=== PATIENT | male | born 1970 | race Hispanic/Latino ===

== ENCOUNTER 2018-04-22 01:59 | Emergency (ER) | payer SELFPAY ==
[2018-04-22] MEDS ORDERED: GEODON IM ONE (02:58)
[2018-04-22 03:12] LABS: Basophils % (Auto) 0.3 % (0.0-1.8); Eosinophils % (Auto) 0.4 % (0.0-4.3); Hemoglobin 15.5 gm/dl (11.8-15.2); Lymphocytes # (Auto) 1.3 K/mm3 (1.2-5.4); Lymphocytes % (Auto) 9.5 % (13.4-35.0); Mean Corpuscular HGB Conc 34 % (32-34); Mean Corpuscular Hemoglobin 32 pg (28-32); Mean Corpuscular Volume 95 fl (84-94); Monocytes # (Auto) 1.2 K/mm3 (0.0-0.8); Monocytes % (Auto) 8.6 % (0.0-7.3); Platelet Count 316 K/mm3 (140-440); Red Blood Count 4.84 M/mm3 (3.65-5.03); Red Cell Distribution Width 14.4 % (13.2-15.2)
[2018-04-22 03:41] LABS: BUN/Creatinine Ratio 14; Blood Urea Nitrogen 14 mg/dL (9-20); Calcium 9.9 mg/dL (8.4-10.2); Hemolysis Index 139
[2018-04-22] MEDS ORDERED: NACL 0.9% 1000 ML 1,000 ML ONE ×2 (04:33→07:04)
[2018-04-22 08:10] LABS: Creatine Kinase MB 3.1 ng/mL (0.0-4.0)
--- NOTE | 2018-04-22 08:36 | XRay Report ---
FINAL REPORT PROCEDURE: XR CHEST 1V AP TECHNIQUE: Chest radiograph anteroposterior view. CPT 69161 HISTORY: cp COMPARISON: No prior studies are available for comparison. FINDINGS: Heart: Normal. Mediastinum/Vessels: Normal. Lungs/Pleural space: Normal. Bony thorax: No acute osseous abnormality. Life support devices: None. IMPRESSION: No acute cardiopulmonary abnormality.
[2018-04-22 10:26] LABS: Cannabinoid Screen,Urine PRESUMPTIVE NEGATIVE; Cocaine Screen,Urine PRESUMPTIVE NEGATIVE; Methadone Screen,Urine PRESUMPTIVE NEGATIVE; Opiate Screen,Urine PRESUMPTIVE NEGATIVE
[2018-04-22 10:48] LABS: Amphetamine Screen,Urine PRESUMPTIVE POSITIVE; Benzodiazepines Screen,Urine PRESUMPTIVE POSITIVE
[2018-04-22] MEDS ORDERED: ZESTRIL PO ONE (15:28)
[2018-04-22] MEDS ORDERED: VISTARIL PO ONE (15:28)
[2018-04-22] MEDS ORDERED: TYLENOL PO ONE (15:30)
[2018-04-23] MEDS ORDERED: ATIVAN PO ONE ×2 (02:50→12:58)
[2018-04-23] MEDS ORDERED: ATIVAN ONE (02:54)
[2018-04-23] MEDS ORDERED: ZESTRIL PO ONE (12:59)
[2018-04-23] MEDS ORDERED: ATARAX PO ONE (13:30)
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
[2018-04-23] MEDS ORDERED: RisperDAL PO SCH (22:00)
[2018-04-23] MEDS: RisperDAL PO SCH (22:33)
--- NOTE | 2018-04-24 11:07 | Progress Note ---
Subjective - Reason for Consult Consult date: 04/24/18 Reason for consult: Psychiatry Follow-up - Chief Complaint Chief complaint: "I was chcf" 47 year old male who presents to the emergency room with paranoid thoughts. Today the patient is cooperative, but tangent and disorganized during the assessment. He had to be redirected several times to stay on topic. He rambles about multiple things when he is asked a question. His answers to questions are not logical. He would not confirm or deny a mental health hx. This patient is not a good historian at this time. Mental Status Exam - Vital signs Last Vital Signs Temp 99.4 F 04/23/18 21:10 Pulse 91 H 04/23/18 21:10 Resp 16 04/23/18 21:10 BP 152/104 04/23/18 21:10 Pulse Ox 100 04/23/18 21:10 - Exam Narrative exam: MSE: Appearance: cooperative Behavior: regular eye contact Speech: hyper verbal Mood: "anxious" Affect: congruent to mood Thought Process: disorganized, tangential Thought Content: denies SI/HI's and AVH's, paranois Motor Activity: lying in bed Cognition: A/O x 3 Insight: poor Judgment: poor Assessment and Plan Impression: Unspecified Psychosis. Substance Use DO (amphetamines). Today the patient is still disorganized during the assessment. DDx: R/O Drug Induced Psychosis, R/O Schizophrenia Recommendation/Plan: Continue 1013 and reassess patient in 24 hour to determine proper dispo once medically clear. Continue Risperdal 1 mg PO HS psychosis/mood and start Buspar 7.5 mg PO BID for anxiety. Attempted to discuss possible metabolic side effects of Risperdal with patient.
[2018-04-24] MEDS: BUSPAR PO SCH ×2 (12:02→22:07)
--- NOTE | 2018-04-24 12:51 | Emergency Department Report ---
Blank Doc - Documentation Documentation: I spoke with my colleague Dr. Aquino who evaluated patient. Her comprehensive history and physical is in paper form on patient's chart. I have reviewed progress notes and diagnostics performed in the ED. Patient is medically clear for psychiatric care. No medical condition exists which needs further stabilization.
[2018-04-24] MEDS ORDERED: ZESTRIL PO ONE (17:02)
[2018-04-24] MEDS ORDERED: ATIVAN PO ONE (17:02)
[2018-04-24] MEDS: RisperDAL PO SCH (22:07)
[2018-04-25] MEDS: BUSPAR PO SCH ×2 (10:17→22:17)
--- NOTE | 2018-04-25 12:49 | Progress Note ---
Subjective - Reason for Consult Consult date: 04/25/18 Reason for consult: Psychiatry Follow-up - Chief Complaint Chief complaint: "I feel a little better" 47 year old male who presents to the emergency room with paranoid thoughts. Today the patient is calm and cooperative during the assessment. He stated that he felt better after taking Buspar. The patient is more lucid, but looks around and pauses when asked questions during the interview, possibly responding to some type of stimuli. He denies SI/HI's and AVH's. He denies any side effects of his medications. Mental Status Exam - Vital signs Last Vital Signs Temp 97.6 F 04/24/18 21:10 Pulse 90 04/24/18 21:10 Resp 17 04/24/18 21:10 BP 148/110 04/24/18 21:10 Pulse Ox 99 04/24/18 21:10 - Exam Narrative exam: MSE: Appearance: calm, cooperative Behavior: regular eye contact Speech: regular rate and tone Mood: "okay" Affect: congruent to mood Thought Process: circumstantial Thought Content: denies SI/HI's and AVH's, paranoia Motor Activity: lying in bed Cognition: A/O x 3 Insight: variable Judgment: variable Assessment and Plan Impression: Unspecified Psychosis. Substance Use DO (amphetamines). Today the patient is still disorganized during the assessment. DDx: R/O Drug Induced Psychosis, R/O Schizophrenia Recommendation/Plan: Continue 1013 and reassess patient in 24 hour to determine proper dispo. Continue Risperdal 1 mg PO HS psychosis/mood and Buspar 7.5 mg PO BID for anxiety. Attempted to discuss possible metabolic side effects of Risperdal with patient.
[2018-04-25] MEDS ORDERED: ATIVAN PO ONE (16:02)
[2018-04-25] MEDS ORDERED: ALUM-MAG HYDROX-SIMETH 200-200-20MG/5ML PO ONE (16:03)
[2018-04-25] MEDS: RisperDAL PO SCH (22:17)
[2018-04-25] MEDS ORDERED: MILK OF MAGNESIA PO ONE (22:52)
--- NOTE | 2018-04-26 09:09 | Emergency Department Report ---
ED Psych HPI - General Chief Complaint: Chest Pain Stated Complaint: CHEST PAIN Time Seen by Provider: 04/22/18 03:51 Source: patient, EMS Mode of arrival: Ambulatory Limitations: Other (anxious) - History of Present Illness Initial Comments: 47-year-old male with a past medical history of hypertension with medication noncompliance, anxiety, substance abuse presents to the hospital complaints of chest pain. Patient anxious and paranoid. He complains of pain across his chest. He is constantly talking about strangers at his mother's house and how he is uncomfortable with them there. He admits to smoking marijuana and states to his knowledge it did not contain any other substances. He does not admit to meth and cocaine abuse. He is initially not cooperative and refusing EKG or to be helped up to the monitor. Is obviously paranoid and presents with significantly elevated blood pressure and heart rate. 1013 has been signed since I believe patient is intoxicated, paranoid, and not safe for discharge. - Related Data Home Medications Medication Instructions Recorded Confirmed Last Taken Lisinopril [Zestril] 10 mg PO DAILY 04/22/18 04/22/18 Unknown Allergies Allergy/AdvReac Type Severity Reaction Status Date / Time amoxicillin Allergy Anaphylaxis Verified 07/24/15 22:05 Penicillins Allergy Anaphylaxis Verified 07/24/15 22:05 ED Review of Systems ROS: Stated complaint: CHEST PAIN Other details as noted in HPI Comment: All other systems reviewed and negative ED Past Medical Hx - Past Medical History Previous Medical History?: Yes Hx Hypertension: Yes (Does Not Take Meds) Hx Psychiatric Treatment: Yes (anxiety, substance abuse) Additional medical history: L shoulder "impeachment" - Surgical History Hx Appendectomy: Yes Additional Surgical History: LEFT LEG SURGERY - Social History Smoking Status: Current Every Day Smoker Substance Use Type: Marijuana - Medications Home Medications: Home Medications Medication Instructions Recorded Confirmed Last Taken Type Lisinopril [Zestril] 10 mg PO DAILY 04/22/18 04/22/18 Unknown History ED Physical Exam - General Limitations: Other - Other Other exam information: General: Anxious uncooperative Head exam: Atraumatic, normocephalic Eyes exam: Normal appearance ENT: Moist mucous membrane, normal oropharynx Neck exam: Normal inspection, full range of motion, no meningismus nontender Respiratory exam: Clear to auscultation bilateral, no wheezes, rales, crackles Cardiovascular: Tachycardic regular rhythm Abdomen: Soft, nondistended, and nontender, with normal bowel sounds, no rebound, or guarding Extremity: Full range of motion normal inspection no deformity Back: Normal Inspection, full range of motion, no tenderness Neurologic: Alert, oriented x3, cranial nerves intact, no motor or sensory deficit Psychiatric: Anxious paranoid Skin: Warm, dry, intact ED Course Vital Signs 04/22/18 04/22/18 04/22/18 02:30 07:00 07:16 Temperature 98.2 F Pulse Rate 120 H 62 Respiratory 18 14 14 Rate Blood Pressure 164/111 81/43 97/55 Blood Pressure 164/111 [Left] O2 Sat by Pulse 97 96 99 Oximetry 04/22/18 04/22/18 04/22/18 08:00 09:00 09:20 Temperature Pulse Rate 55 L 49 L 58 L Respiratory 11 L 11 L 13 Rate Blood Pressure 95/55 84/53 103/69 Blood Pressure [Left] O2 Sat by Pulse 100 98 99 Oximetry 04/22/18 04/22/18 04/22/18 10:00 10:49 19:40 Temperature 98.5 F Pulse Rate 52 L 64 74 Respiratory 9 L 20 16 Rate Blood Pressure 103/66 Blood Pressure 129/97 114/75 [Left] O2 Sat by Pulse 99 100 99 Oximetry 04/23/18 04/23/18 04/23/18 10:39 11:02 13:08 Temperature 97.6 F Pulse Rate 71 71 Respiratory 16 16 Rate Blood Pressure 120/74 Blood Pressure 120/74 [Left] O2 Sat by Pulse 99 99 Oximetry 04/23/18 04/24/18 04/24/18 21:10 02:38 10:00 Temperature 99.4 F 97.6 F Pulse Rate 91 H 94 H Respiratory 16 20 18 Rate Blood Pressure Blood Pressure 152/104 124/85 [Left] O2 Sat by Pulse 100 95 98 Oximetry 04/24/18 04/24/18 04/24/18 12:46 17:20 21:10 Temperature 97.6 F Pulse Rate 70 90 Respiratory 16 17 Rate Blood Pressure 118/86 Blood Pressure 148/110 [Left] O2 Sat by Pulse 98 99 Oximetry 04/25/18 04/25/18 04/25/18 04:00 10:00 19:30 Temperature 98.1 F 98.3 F Pulse Rate 70 71 Respiratory 18 18 18 Rate Blood Pressure Blood Pressure 127/81 118/89 [Left] O2 Sat by Pulse 98 95 99 Oximetry 04/25/18 21:02 Temperature Pulse Rate Respiratory 18 Rate Blood Pressure Blood Pressure [Left] O2 Sat by Pulse 96 Oximetry - Reevaluation(s) Reevaluation #1: pt was agreeable to receiving a medication to calm him down and received IM Geodon. After that we are able to place him in a bed and obtain an EKG which showed improvement in heart rate. Blood pressure also reduce with a systolic less than 100 therefore normal saline IV bolus initiated. ED Medical Decision Making - Lab Data Result diagrams: 04/22/18 02:49 04/26/18 09:19 Lab Results 04/22/18 04/22/18 04/22/18 Range/Units 02:49 02:49 02:59 WBC 13.7 H (4.5-11.0) K/mm3 RBC 4.84 (3.65-5.03) M/mm3 Hgb 15.5 H (11.8-15.2) gm/dl Hct 46.0 H (35.5-45.6) % MCV 95 H (84-94) fl MCH 32 (28-32) pg MCHC 34 (32-34) % RDW 14.4 (13.2-15.2) % Plt Count 316 (140-440) K/mm3 Lymph % (Auto) 9.5 L (13.4-35.0) % Adams % (Auto) 8.6 H (0.0-7.3) % Eos % (Auto) 0.4 (0.0-4.3) % Baso % (Auto) 0.3 (0.0-1.8) % Lymph # 1.3 (1.2-5.4) K/mm3 Adams # 1.2 H (0.0-0.8) K/mm3 Eos # 0.0 (0.0-0.4) K/mm3 Baso # 0.0 (0.0-0.1) K/mm3 Seg Neutrophils % 81.2 H (40.0-70.0) % Seg Neutrophils # 11.1 H (1.8-7.7) K/mm3 Sodium 133 L (137-145) mmol/L Potassium 4.7 (3.6-5.0) mmol/L Chloride 96.7 L (98-107) mmol/L Carbon Dioxide 17 L (22-30) mmol/L Anion Gap 24 mmol/L BUN 14 (9-20) mg/dL Creatinine 1.0 (0.8-1.5) mg/dL Estimated GFR > 60 ml/min BUN/Creatinine Ratio 14 % Glucose 138 H (75-100) mg/dL Calcium 9.9 (8.4-10.2) mg/dL Total Creatine Kinase 120 (55-170) units/L CK-MB (CK-2) 3.1 (0.0-4.0) ng/mL CK-MB (CK-2) Rel Index 2.5 (0-4) Troponin T < 0.010 (0.00-0.029) ng/mL Urine Opiates Screen Urine Methadone Screen Ur Barbiturates Screen Ur Phencyclidine Scrn Ur Amphetamines Screen U Benzodiazepines Scrn Urine Cocaine Screen U Marijuana (THC) Screen Drugs of Abuse Note Plasma/Serum Alcohol (0-0.07) % 04/22/18 04/22/18 Range/Units 02:59 09:45 WBC (4.5-11.0) K/mm3 RBC (3.65-5.03) M/mm3 Hgb (11.8-15.2) gm/dl Hct (35.5-45.6) % MCV (84-94) fl MCH (28-32) pg MCHC (32-34) % RDW (13.2-15.2) % Plt Count (140-440) K/mm3 Lymph % (Auto) (13.4-35.0) % Adams % (Auto) (0.0-7.3) % Eos % (Auto) (0.0-4.3) % Baso % (Auto) (0.0-1.8) % Lymph # (1.2-5.4) K/mm3 Adams # (0.0-0.8) K/mm3 Eos # (0.0-0.4) K/mm3 Baso # (0.0-0.1) K/mm3 Seg Neutrophils % (40.0-70.0) % Seg Neutrophils # (1.8-7.7) K/mm3 Sodium (137-145) mmol/L Potassium (3.6-5.0) mmol/L Chloride (98-107) mmol/L Carbon Dioxide (22-30) mmol/L Anion Gap mmol/L BUN (9-20) mg/dL Creatinine (0.8-1.5) mg/dL Estimated GFR ml/min BUN/Creatinine Ratio % Glucose (75-100) mg/dL Calcium (8.4-10.2) mg/dL Total Creatine Kinase (55-170) units/L CK-MB (CK-2) (0.0-4.0) ng/mL CK-MB (CK-2) Rel Index (0-4) Troponin T (0.00-0.029) ng/mL Urine Opiates Screen Presumptive negative Urine Methadone Screen Presumptive negative Ur Barbiturates Screen Presumptive negative Ur Phencyclidine Scrn Presumptive negative Ur Amphetamines Screen Presumptive positive U Benzodiazepines Scrn Presumptive positive Urine Cocaine Screen Presumptive negative U Marijuana (THC) Screen Presumptive negative Drugs of Abuse Note Disclamer Plasma/Serum Alcohol < 0.01 (0-0.07) % repeat BMP shows improvement in minor electrolyte abnormalities - EKG Data -: EKG Interpreted by [facility] EKG shows normal: sinus rhythm (87), axis (qrs 10), QRS complexes (qrsd 95), ST- T waves (no stemi/t inv) - EKG Data When compared to previous EKG there are: previous EKG unavailable - Medical Decision Making paranoia Primary psychiatric disorders versus acute drug intoxication 1013 has been signed the patient can be stabilized and reassessed Hypertension/chest pain Associated with paranoia Improved after Geodon with secondary hypotension Normal saline initiated low BP EKG without stemi Inital trop neg pt will be signed out to Dr Medina, oncoming physician to follow up pending lab values reassessed patient. Critical Care Time: No Critical care attestation.: If time is entered above; I have spent that time in minutes in the direct care of this critically ill patient, excluding procedure time. ED Disposition Clinical Impression: Psychosis, Paranoid, Amphetamine abuse, Medical clearance for psychiatric admission, Benzodiazepine abuse Hypertension Qualifiers: Hypertension type: essential hypertension Qualified Code(s): I10 - Essential ( primary) hypertension Disposition: DC/TX-65 PSY HOSP/PSY UNIT Is pt being admited?: No Does the pt Need Aspirin: No Condition: Stable Referrals: PRIMARY CARE, [Primary Care Provider] - 3-5 Days Time of Disposition: 09:11
[2018-04-26 09:52] LABS: BUN/Creatinine Ratio 11; Blood Urea Nitrogen 10 mg/dL (9-20); Calcium 9.1 mg/dL (8.4-10.2); Hemolysis Index 13
[2018-04-26] MEDS: BUSPAR PO SCH ×2 (10:16→22:05)
[2018-04-26] MEDS ORDERED: TYLENOL ONE (11:17)
[2018-04-26 20:56] VITALS: BP 124/91
[2018-04-26] MEDS: RisperDAL PO SCH (22:05)
[2018-04-27] MEDS ORDERED: TYLENOL PO ONE (00:20)
[2018-04-27] MEDS ORDERED: ATIVAN PO PRN (10:16)
[2018-04-27] MEDS: BUSPAR PO SCH (10:27)
[2018-04-27] MEDS ORDERED: PEPCID PO SCH (12:00)
[2018-04-27] MEDS ORDERED: PEPCID ONE (12:06)
--- NOTE | 2018-04-27 13:04 | Progress Note ---
Subjective - Reason for Consult Consult date: 04/27/18 Reason for consult: Psychiatry Follow-up - Chief Complaint Chief complaint: "I will do better" 47 year old male who presents to the emergency room with paranoid thoughts. Today the patient is calm and cooperative during the assessment. He stated that he will follow up with outpatient/rehab services once discharged. He stated that his mental health is very important. He denies SI/HI's and AVH' s. He denies any side effects of his medications. Mental Status Exam - Vital signs Last Vital Signs Temp 97.9 F 04/26/18 19:25 Pulse 77 04/26/18 19:25 Resp 14 04/27/18 01:39 BP 124/91 04/26/18 19:25 Pulse Ox 99 04/26/18 19:25 - Exam Narrative exam: MSE: Appearance: calm, cooperative Behavior: regular eye contact Speech: regular rate and tone Mood: "okay" Affect: congruent to mood Thought Process: more organized Thought Content: denies SI/HI's and AVH's Motor Activity: lying in bed Cognition: A/O x 3 Insight: fair Judgment: fair Assessment and Plan Impression: Unspecified Psychosis. Substance Use DO (amphetamines). Today the patient is calm and cooperative during the assessment. The psychosis has resolved. DDx: R/O Drug Induced Psychosis, R/O Schizophrenia Recommendation/Plan: Rescind 1013. Continue Risperdal 1 mg PO HS psychosis/mood and Buspar 7.5 mg PO BID for anxiety. Discussed possible metabolic side effects of Risperdal with patient. The patient can follow up with [facility] for outpatient psy/rehab services.
== END 2018-04-27 14:14 | disposition home or self-care (01) ==
LOC: EEVIPCON 01:59 → ED 01:59
DX: F41.9 Anxiety disorder, unspecified (principal); F29 Unspecified psychosis not due to a substance or known physiological condition; F15.10 Other stimulant abuse, uncomplicated; I10 Essential (primary) hypertension; F12.10 Cannabis abuse, uncomplicated; F17.200 Nicotine dependence, unspecified, uncomplicated; Z90.89 Acquired absence of other organs; Z88.1 Allergy status to other antibiotic agents; Z88.0 Allergy status to penicillin; Z79.899 Other long term (current) drug therapy
CPT/HCPCS: 36415; 71045; 80048; 80307; 82550; 82553; 84484; 85025; 93005; 93010; 96372; 99285; G0480; J3486; J7030; 80320; Q0177

== ENCOUNTER 2018-09-03 00:28 | Emergency (ER) | payer SELFPAY ==
--- NOTE | 2018-09-03 01:51 | Emergency Department Report ---
ED General Adult HPI - General Chief complaint: Psych Stated complaint: MED REFILL Time Seen by Provider: 09/03/18 01:44 Source: patient, RN notes reviewed, old records reviewed Mode of arrival: Ambulatory Limitations: Other (patient is upset is a poor historian) - History of Present Illness Initial comments: This is a 48-year-old gentleman with a history of hypertension, presumed GERD, alcohol abuse, methamphetamine abuse, psychiatric disease who presents to the ER with a request for medical clearance. He reports that he would like to perform voluntary hospitalization. He has chronic hallucinations. He is not homicidal or suicidal. He requests refill of his medications. He does not have access to guns or firearms. He does not want to hurt himself. His somewhat to hurt other people. He reports that he consumed alcohol earlier on today. He also requests refill of his psychiatric medications. -: Gradual Consistency: constant Improves with: none Worsens with: none Associated Symptoms: loss of appetite, malaise, weakness. denies: confusion, chest pain, cough, diaphoresis, fever/chills, headaches, nausea/vomiting, rash, seizure, shortness of breath, syncope - Related Data Home Medications Medication Instructions Recorded Confirmed Last Taken Hydroxyzine HCl [hydrOXYzine] 50 mg PO TID 08/14/18 08/29/18 Unknown Ibuprofen [Ibu] 800 mg PO TID PRN 08/14/18 08/29/18 Unknown Previous Rx's Medication Instructions Recorded Last Taken Type Lisinopril [Zestril] 10 mg PO DAILY #30 tablet 08/25/18 Unknown Rx QUEtiapine [SEROquel] 200 mg PO HS #30 tablet 08/25/18 Unknown Rx Esomeprazole Magnesium [NexIUM] 40 mg PO QDAY #30 capsule. 08/29/18 Unknown Rx QUEtiapine [SEROquel] 200 mg PO HS #30 tablet 08/29/18 Unknown Rx Sertraline [Zoloft] 25 mg PO QDAY #30 tablet 08/29/18 Unknown Rx hydrOXYzine PAMOATE [Vistaril] 25 mg PO TID #30 capsule 08/29/18 Unknown Rx Allergies Allergy/AdvReac Type Severity Reaction Status Date / Time amoxicillin Allergy Anaphylaxis Verified 07/24/15 22:05 Penicillins Allergy Anaphylaxis Verified 07/24/15 22:05 ED Review of Systems ROS: Stated complaint: MED REFILL Other details as noted in HPI Constitutional: malaise. denies: fever Eyes: denies: eye discharge ENT: denies: epistaxis Respiratory: denies: cough Cardiovascular: denies: chest pain Genitourinary: denies: dysuria, testicular mass Musculoskeletal: arthralgia, myalgia Neurological: weakness. denies: as per HPI Psychiatric: anxiety. denies: homicidal thoughts, suicidal thoughts ED Past Medical Hx - Past Medical History Previous Medical History?: Yes Hx Hypertension: Yes Hx Psychiatric Treatment: Yes (anxiety, substance abuse, Parinoid schizo) Additional medical history: L shoulder - Surgical History Hx Appendectomy: Yes Additional Surgical History: LEFT LEG SURGERY - Social History Smoking Status: Current Every Day Smoker Substance Use Type: Alcohol - Medications Home Medications: Home Medications Medication Instructions Recorded Confirmed Last Taken Type Hydroxyzine HCl [hydrOXYzine] 50 mg PO TID 08/14/18 08/29/18 Unknown History Ibuprofen [Ibu] 800 mg PO TID PRN 08/14/18 08/29/18 Unknown History Lisinopril [Zestril] 10 mg PO DAILY #30 tablet 08/25/18 08/29/18 Unknown Rx QUEtiapine [SEROquel] 200 mg PO HS #30 tablet 08/25/18 08/29/18 Unknown Rx Esomeprazole Magnesium [NexIUM] 40 mg PO QDAY #30 capsule. 08/29/18 08/29/18 Unknown Rx QUEtiapine [SEROquel] 200 mg PO HS #30 tablet 08/29/18 08/29/18 Unknown Rx Sertraline [Zoloft] 25 mg PO QDAY #30 tablet 08/29/18 08/29/18 Unknown Rx hydrOXYzine PAMOATE [Vistaril] 25 mg PO TID #30 capsule 08/29/18 08/29/18 Unknown Rx ED Physical Exam - General Limitations: No Limitations General appearance: alert, anxious, in distress - Head Head exam: Present: atraumatic, normocephalic - Eye Eye exam: Present: normal appearance, EOMI. Absent: nystagmus - ENT ENT exam: Present: normal exam, normal orophraynx, mucous membranes moist, normal external ear exam - Neck Neck exam: Present: normal inspection, full ROM. Absent: tenderness, meningismus - Respiratory Respiratory exam: Present: normal lung sounds bilaterally. Absent: respiratory distress - Cardiovascular Cardiovascular Exam: Present: normal rhythm, tachycardia, normal heart sounds. Absent: systolic murmur, diastolic murmur, rubs, gallop - GI/Abdominal GI/Abdominal exam: Present: soft. Absent: distended, tenderness, guarding, rebound, rigid, pulsatile mass - Rectal Rectal exam: Present: deferred - Extremities Exam Extremities exam: Present: normal inspection, full ROM, other (2+ pulses in the bilateral upper extremities. Moving 4 extremities spontaneously. There is no long bony tenderness.) - Back Exam Back exam: Present: normal inspection, full ROM. Absent: tenderness, CVA tenderness (R), paraspinal tenderness, vertebral tenderness - Neurological Exam Neurological exam: Present: alert, oriented X3, CN II-XII intact, normal gait, other (Extraocular movements intact. Tongue midline. No facial droop. Facial sensation intact to light touch in the V1, V2, V3 distribution bilaterally. 5 and 5 strength in 4 extremities.. Sensation is intact to light touch in 4 extremities.). Absent: motor sensory deficit - Psychiatric Psychiatric exam: Present: anxious. Absent: homicidal ideation, suicidal ideation - Skin Skin exam: Present: warm, dry, intact, normal color. Absent: rash ED Course Vital Signs 09/03/18 09/03/18 09/03/18 01:29 02:00 03:10 Temperature 98.2 F Pulse Rate 110 H 93 H Respiratory 20 14 14 Rate Blood Pressure 110/73 Blood Pressure 121/84 [Left] O2 Sat by Pulse 98 96 96 Oximetry 09/03/18 04:06 Temperature Pulse Rate 87 Respiratory 16 Rate Blood Pressure Blood Pressure 123/81 [Left] O2 Sat by Pulse 97 Oximetry - Reevaluation(s) Reevaluation #1: 09/03/18 02:16 Differential diagnosis, including but not limited to: Anxiety, mood disorder, medical clearance for psychiatric placement, chronic alcohol dependence Assessment and plan: 48-year-old gentleman who appears to be anxious, is not homicidal or suicidal, clinically does not appear to be intoxicated at this poin t in time. Does not meet 1013 criteria. Is requesting symptomatic therapy at this time. No tongue fasciculations noted. Tachycardia likely secondary to anxiety. We will obtain screening laboratory studies. He will be given Ativan for his symptoms. Psychiatric consultation has been requested for voluntary placement, as per the patient's request. Physical examination thus far unremarkable, with the exception of tachycardia. Reevaluation #2: 09/03/18 04:20 Laboratory studies reviewed and appreciated. They are essentially unremarkable. Creatinine kinase of 700 appreciated, muscular compartments soft, renal function within normal limits, this does not meet the definition criteria for rhabdomyolysis, and this will decrease with oral hydration. He does not require IV fluids at this time, or additional follow-up at this point in time. The patient's outpatient medications have been continued, psychiatry consultation has been requested, and the patient is pending placement to a psychiatric facility on a voluntary basis. At this point in time, there does not appear to be in immediate medical contraindication to psychiatric admission, evaluation, placement. However, if the patient elects that he would like to be discharged from the emergency room and follow-up as an outpatient, this plan of care would be reasonable as well. ED Medical Decision Making - Lab Data Result diagrams: 09/03/18 01:55 09/03/18 01:55 Vital Signs 09/03/18 01:29 Temperature 98.2 F Pulse Rate 110 H Respiratory 20 Rate Blood Pressure 110/73 O2 Sat by Pulse 98 Oximetry Vital Signs 09/03/18 09/03/18 09/03/18 01:29 02:00 03:10 Temperature 98.2 F Pulse Rate 110 H 93 H Respiratory 20 14 14 Rate Blood Pressure 110/73 Blood Pressure 121/84 [Left] O2 Sat by Pulse 98 96 96 Oximetry 09/03/18 04:06 Temperature Pulse Rate 87 Respiratory 16 Rate Blood Pressure Blood Pressure 123/81 [Left] O2 Sat by Pulse 97 Oximetry Critical care attestation.: If time is entered above; I have spent that time in minutes in the direct care of this critically ill patient, excluding procedure time. ED Disposition Clinical Impression: Schizophrenia, History of alcohol dependence Disposition: [id number]/PSY UNIT Is pt being admited?: No Does the pt Need Aspirin: No Condition: Good Referrals: PRIMARY CARE, [Primary Care Provider] - 3-5 Days
[2018-09-03] MEDS: ATIVAN IM PRN ×2 (02:05→13:08)
[2018-09-03 02:22] LABS: Basophils # (Auto) 0.1 K/mm3 (0.0-0.1); Basophils % (Auto) 0.7 % (0.0-1.8); Eosinophils # (Auto) 0.2 K/mm3 (0.0-0.4); Hematocrit 39.9 % (35.5-45.6); Hemoglobin 13.7 gm/dl (11.8-15.2); Lymphocytes # (Auto) 2.3 K/mm3 (1.2-5.4); Lymphocytes % (Auto) 27.3 % (13.4-35.0); Mean Corpuscular HGB Conc 34 % (32-34); Mean Corpuscular Volume 96 fl (84-94); Monocytes # (Auto) 0.5 K/mm3 (0.0-0.8); Monocytes % (Auto) 6.6 % (0.0-7.3); Platelet Count 298 K/mm3 (140-440); Red Blood Count 4.14 M/mm3 (3.65-5.03); Red Cell Distribution Width 14.2 % (13.2-15.2)
[2018-09-03 02:32] LABS: BUN/Creatinine Ratio 11; Blood Urea Nitrogen 10 mg/dL (9-20); Calcium 8.6 mg/dL (8.4-10.2); Hemolysis Index 38
[2018-09-03] MEDS ORDERED: IBUPROFEN PO PRN (04:21)
[2018-09-03] MEDS ORDERED: LIBRIUM PO PRN (04:22)
[2018-09-03] MEDS ORDERED: ATIVAN IV PRN ×2 (04:22)
[2018-09-03] MEDS: ATIVAN IV PRN ×2 (06:30→07:39)
[2018-09-03 06:50] LABS: Benzodiazepines Screen,Urine PRESUMPTIVE NEGATIVE; Cocaine Screen,Urine PRESUMPTIVE NEGATIVE; Opiate Screen,Urine PRESUMPTIVE NEGATIVE
[2018-09-03 07:04] LABS: Amphetamine Screen,Urine PRESUMPTIVE POSITIVE; Cannabinoid Screen,Urine PRESUMPTIVE POSITIVE; Methadone Screen,Urine PRESUMPTIVE POSITIVE
[2018-09-03] MEDS: ATARAX PO SCH ×2 (07:38→13:10)
[2018-09-03] MEDS ORDERED: NON-FORMULARY (Hydroxyzine Hcl [Hydroxyzine] 50 MG) PO SCH (08:00)
[2018-09-03] MEDS ORDERED: PROTONIX PO SCH (10:00)
[2018-09-03] MEDS ORDERED: ZESTRIL PO SCH (10:00)
[2018-09-03] MEDS ORDERED: NON-FORMULARY (Esomeprazole Magnesium [Nexium] 40 MG) PO SCH (10:00)
[2018-09-03 13:09] VITALS: BP 134/72
== END 2018-09-03 13:50 | disposition left against medical advice (07) ==
LOC: EEVIPCON 00:28 → ED 00:28
DX: F20.0 Paranoid schizophrenia (principal); F41.9 Anxiety disorder, unspecified; I10 Essential (primary) hypertension; K21.9 Gastro-esophageal reflux disease without esophagitis; F17.200 Nicotine dependence, unspecified, uncomplicated; Z90.49 Acquired absence of other specified parts of digestive tract; Z88.0 Allergy status to penicillin; Z88.1 Allergy status to other antibiotic agents
CPT/HCPCS: 36415; 80048; 80307; 82550; 85025; 96372; 96374; 96376; 99284; G0480; J2060; 80320

== ENCOUNTER 2018-09-03 15:53 | Emergency (ER) | payer SELFPAY ==
--- NOTE | 2018-09-03 17:34 | Emergency Department Report ---
ED Psych HPI - General Chief Complaint: Psych Stated Complaint: MH Time Seen by Provider: 09/03/18 17:17 Source: patient Mode of arrival: Ambulatory - History of Present Illness Initial Comments: Patient is 48-year-old male with history of post traumatic stress disorder, paranoid schizophrenia, methamphetamine abuse and alcohol abuse. Patient brought to the ER accompanied by his mother. Patient stated that he is hearing voices more frequent for the last few days. He stated that the voices are bothering him. Patient stated that he is unable to function because of that. Patient also admitting visual hallucination. Patient denied any suicidal or homicidal ideation. Mother stated that patient has been very paranoid and has been calling 911 more frequent. Complaint: other - Related Data Home Medications Medication Instructions Recorded Confirmed Last Taken RX: Hydroxyzine HCl [hydrOXYzine] 50 mg PO TID 08/14/18 08/29/18 Unknown RX: Ibuprofen [Ibu] 800 mg PO TID PRN 08/14/18 08/29/18 Unknown Previous Rx's Medication Instructions Recorded Last Taken Type RX: Lisinopril [Zestril] 10 mg PO DAILY #30 tablet 08/25/18 Unknown Rx RX: QUEtiapine [SEROquel] 200 mg PO HS #30 tablet 08/25/18 Unknown Rx RX: Esomeprazole Magnesium [NexIUM] 40 mg PO QDAY #30 capsule. 08/29/18 Unknown Rx RX: QUEtiapine [SEROquel] 200 mg PO HS #30 tablet 08/29/18 Unknown Rx RX: Sertraline [Zoloft] 25 mg PO QDAY #30 tablet 08/29/18 Unknown Rx RX: hydrOXYzine PAMOATE [Vistaril] 25 mg PO TID #30 capsule 08/29/18 Unknown Rx Allergies Allergy/AdvReac Type Severity Reaction Status Date / Time amoxicillin Allergy Anaphylaxis Verified 07/24/15 22:05 Penicillins Allergy Anaphylaxis Verified 07/24/15 22:05 ED Review of Systems ROS: Stated complaint: MH Other details as noted in HPI Comment: All other systems reviewed and negative ENT: denies: throat pain, dental pain Respiratory: denies: cough, orthopnea, shortness of breath, SOB with exertion, SOB at rest, wheezing Cardiovascular: denies: chest pain, palpitations, dyspnea on exertion Gastrointestinal: denies: abdominal pain, nausea, vomiting, diarrhea, constipation, hematemesis Musculoskeletal: denies: back pain Neurological: denies: headache, weakness, numbness, paresthesias, confusion, abnormal gait ED Past Medical Hx - Past Medical History Previous Medical History?: Yes Hx Hypertension: Yes Hx Psychiatric Treatment: Yes (anxiety, substance abuse, Parinoid schizo) Additional medical history: L shoulder - Surgical History Hx Appendectomy: Yes Additional Surgical History: LEFT LEG SURGERY - Social History Smoking Status: Current Every Day Smoker Substance Use Type: None - Medications Home Medications: Home Medications Medication Instructions Recorded Confirmed Last Taken Type RX: Hydroxyzine HCl [hydrOXYzine] 50 mg PO TID 08/14/18 08/29/18 Unknown History RX: Ibuprofen [Ibu] 800 mg PO TID PRN 08/14/18 08/29/18 Unknown History RX: Lisinopril [Zestril] 10 mg PO DAILY #30 tablet 08/25/18 08/29/18 Unknown Rx RX: QUEtiapine [SEROquel] 200 mg PO HS #30 tablet 08/25/18 08/29/18 Unknown Rx RX: Esomeprazole Magnesium [NexIUM] 40 mg PO QDAY #30 capsule. 08/29/18 08/29/18 Unknown Rx RX: QUEtiapine [SEROquel] 200 mg PO HS #30 tablet 08/29/18 08/29/18 Unknown Rx RX: Sertraline [Zoloft] 25 mg PO QDAY #30 tablet 08/29/18 08/29/18 Unknown Rx RX: hydrOXYzine PAMOATE [Vistaril] 25 mg PO TID #30 capsule 08/29/18 08/29/18 Unknown Rx ED Physical Exam - General Limitations: No Limitations General appearance: alert, in no apparent distress - Head Head exam: Present: atraumatic, normocephalic, normal inspection - Eye Eye exam: Present: normal appearance - ENT ENT exam: Present: normal exam, normal orophraynx, mucous membranes moist - Neck Neck exam: Present: normal inspection, full ROM. Absent: tenderness, meningismus, lymphadenopathy, thyromegaly - Respiratory Respiratory exam: Present: normal lung sounds bilaterally - Cardiovascular Cardiovascular Exam: Present: regular rate, normal rhythm, normal heart sounds - GI/Abdominal GI/Abdominal exam: Present: soft, normal bowel sounds. Absent: distended, tenderness, guarding, rebound, rigid, organomegaly, mass, bruit, pulsatile mass, hernia - Extremities Exam Extremities exam: Present: normal inspection, full ROM, normal capillary refill. Absent: pedal edema, calf tenderness - Back Exam Back exam: Present: normal inspection, full ROM. Absent: tenderness, CVA tenderness (R), CVA tenderness (L), muscle spasm, paraspinal tenderness, vertebral tenderness - Neurological Exam Neurological exam: Present: alert, oriented X3, CN II-XII intact, normal gait, reflexes normal - Psychiatric Psychiatric exam: Present: agitated, anxious. Absent: flat affect, manic, homicidal ideation, suicidal ideation - Skin Skin exam: Present: warm, intact, normal color ED Course Vital Signs 09/03/18 09/03/18 16:16 19:45 Temperature 98.6 F 98.4 F Pulse Rate 88 78 Respiratory 16 18 Rate Blood Pressure 143/83 132/89 [Right] O2 Sat by Pulse 97 100 Oximetry Critical care attestation.: If time is entered above; I have spent that time in minutes in the direct care of this critically ill patient, excluding procedure time. ED Disposition Clinical Impression: Auditory hallucinations, PTSD (post-traumatic stress disorder), History of alcohol dependence Disposition: ELOPED Is pt being admited?: No Condition: Stable Referrals: PRIMARY CARE, [Primary Care Provider] - 3-5 Days
[2018-09-03 19:47] VITALS: BP 132/89
== END 2018-09-03 20:07 | disposition left against medical advice (07) ==
LOC: ED 15:53
DX: F43.10 Post-traumatic stress disorder, unspecified (principal); F20.0 Paranoid schizophrenia; F41.9 Anxiety disorder, unspecified; F17.200 Nicotine dependence, unspecified, uncomplicated; I10 Essential (primary) hypertension; F15.10 Other stimulant abuse, uncomplicated; F10.10 Alcohol abuse, uncomplicated; Z90.89 Acquired absence of other organs; Z88.1 Allergy status to other antibiotic agents; Z88.0 Allergy status to penicillin
CPT/HCPCS: 99283

== ENCOUNTER 2018-09-13 16:16 | Emergency (ER) | payer SELFPAY ==
[2018-09-13 18:05] LABS: Basophils % (Auto) 0.5 % (0.0-1.8); Eosinophils # (Auto) 0.1 K/mm3 (0.0-0.4); Eosinophils % (Auto) 1.2 % (0.0-4.3); Hematocrit 38.2 % (35.5-45.6); Hemoglobin 13.5 gm/dl (11.8-15.2); Lymphocytes # (Auto) 2.4 K/mm3 (1.2-5.4); Lymphocytes % (Auto) 25.5 % (13.4-35.0); Mean Corpuscular HGB Conc 36 % (32-34); Mean Corpuscular Volume 93 fl (84-94); Monocytes # (Auto) 0.8 K/mm3 (0.0-0.8); Monocytes % (Auto) 8.5 % (0.0-7.3); Platelet Count 317 K/mm3 (140-440); Red Blood Count 4.11 M/mm3 (3.65-5.03); Red Cell Distribution Width 14.2 % (13.2-15.2)
[2018-09-13 18:27] LABS: BUN/Creatinine Ratio 11; Blood Urea Nitrogen 10 mg/dL (9-20); Calcium 9.3 mg/dL (8.4-10.2); Hemolysis Index 45
[2018-09-13] MEDS ORDERED: ATIVAN ONE (18:30)
[2018-09-13] MEDS ORDERED: KEPPRA 1,000 MG/NS 0.75% 100ML 1,000 MG/100 ML BAG IV ONE (18:33)
[2018-09-13] MEDS ORDERED: ATIVAN IV ONE ×2 (18:33→18:48)
[2018-09-13] MEDS ORDERED: GEODON IM ONE (18:50)
[2018-09-13] MEDS ORDERED: WATER FOR INJ (PF) ONE (18:54)
--- NOTE | 2018-09-13 19:12 | Emergency Department Report ---
ED Seizure HPI - General Chief Complaint: Seizure Stated Complaint: SEIZURE Time Seen by Provider: 09/13/18 16:32 Source: patient Mode of arrival: Ambulatory Limitations: No Limitations - History of Present Illness Initial Comments: 48-year-old male with a past medical history hypertension, substance abuse, anxiety, and paranoid schizophrenia presents to the hospital with complaints of going to have a seizure. Patient was stuttering and he is having visual hallucinations. He was just released from [facility] and was started on new medication. Patient also has a history of methamphetamine abuse and has presented to the ER in the past with psychosis, paranoia, and methamphetamine intoxication. I entered the room patient had seizure-like activity with movement of his upper extremities and was not responsive to painful stimuli. He did bite the right side of his tongue but no urinary incontinence. He is confused but alert after seizure activity. Patient denies daily alcohol use or dependence. He also denies drug abuse (however he always denies substance abuse when questioned). Previous medical record states that patient does have a history of alcohol withdrawal symptoms. MD Complaint: feel seizure coming on - Related Data Home Medications Medication Instructions Recorded Confirmed Last Taken Hydroxyzine HCl [hydrOXYzine] 50 mg PO TID 08/14/18 09/14/18 Unknown Ibuprofen [Ibu] 800 mg PO TID PRN 08/14/18 09/14/18 Unknown Previous Rx's Medication Instructions Recorded Last Taken Type Lisinopril [Zestril] 10 mg PO DAILY #30 tablet 08/25/18 Unknown Rx QUEtiapine [SEROquel] 200 mg PO HS #30 tablet 08/25/18 Unknown Rx Esomeprazole Magnesium [NexIUM] 40 mg PO QDAY #30 capsule. 08/29/18 Unknown Rx QUEtiapine [SEROquel] 200 mg PO HS #30 tablet 08/29/18 Unknown Rx Sertraline [Zoloft] 25 mg PO QDAY #30 tablet 08/29/18 Unknown Rx hydrOXYzine PAMOATE [Vistaril] 25 mg PO TID #30 capsule 08/29/18 Unknown Rx Allergies Allergy/AdvReac Type Severity Reaction Status Date / Time amoxicillin Allergy Anaphylaxis Verified 09/13/18 16:23 Penicillins Allergy Anaphylaxis Verified 09/13/18 16:23 ED Review of Systems ROS: Stated complaint: SEIZURE Other details as noted in HPI Comment: All other systems reviewed and negative ED Past Medical Hx - Past Medical History Hx Hypertension: Yes Hx Psychiatric Treatment: Yes (anxiety, substance abuse, Parinoid schizo) Additional medical history: L shoulder - Surgical History Hx Appendectomy: Yes Additional Surgical History: LEFT LEG SURGERY - Social History Smoking Status: Current Every Day Smoker - Medications Home Medications: Home Medications Medication Instructions Recorded Confirmed Last Taken Type Hydroxyzine HCl [hydrOXYzine] 50 mg PO TID 08/14/18 09/14/18 Unknown History Ibuprofen [Ibu] 800 mg PO TID PRN 08/14/18 09/14/18 Unknown History Lisinopril [Zestril] 10 mg PO DAILY #30 tablet 08/25/18 09/14/18 Unknown Rx QUEtiapine [SEROquel] 200 mg PO HS #30 tablet 08/25/18 09/14/18 Unknown Rx Esomeprazole Magnesium [NexIUM] 40 mg PO QDAY #30 capsule. 08/29/18 09/14/18 Unknown Rx QUEtiapine [SEROquel] 200 mg PO HS #30 tablet 08/29/18 09/14/18 Unknown Rx Sertraline [Zoloft] 25 mg PO QDAY #30 tablet 08/29/18 09/14/18 Unknown Rx hydrOXYzine PAMOATE [Vistaril] 25 mg PO TID #30 capsule 08/29/18 09/14/18 Unknown Rx ED Physical Exam - General Limitations: No Limitations - Other Other exam information: General: No limitations, patient is alert in no acute distress Head exam: Atraumatic, normocephalic Eyes exam: Normal appearance, pupils equal reactive to light, extraocular movements intact ENT: Moist mucous membrane, normal oropharynx. The patient right tongue abrasion. Neck exam: Normal inspection, full range of motion, no meningismus nontender Respiratory exam: Clear to auscultation bilateral, no wheezes, rales, crackles Cardiovascular: Normal rate and rhythm, normal heart sounds Abdomen: Soft, nondistended, and nontender, with normal bowel sounds, no rebound, or guarding Extremity: Full range of motion normal inspection no deformity Back: Normal Inspection, full range of motion, no tenderness Neurologic: Alert, cranial nerves intact, no motor or sensory deficit. After seizure patient extremely paranoid with hallucinations. Psychiatric: normal affect, normal mood Skin: Warm, dry, intact ED Course Vital Signs 09/13/18 09/13/18 16:23 22:14 Temperature 98.2 F 98.4 F Pulse Rate 97 H 88 Respiratory 16 16 Rate Blood Pressure 164/97 Blood Pressure 116/78 [Right] O2 Sat by Pulse 100 Oximetry - Reevaluation(s) Reevaluation #1: 09/13/18 After seizure activity patient is extremely paranoid and would not remain still. In addition to Ativan patient also received Geodon. IV Keppra also given. 1013 signed - Consultations Consultation #1: 09/14/18 00:30 Mental health evaluation ordered at 9 PM and still pending ED Medical Decision Making - Lab Data Result diagrams: 09/13/18 17:55 09/13/18 17:55 Lab Results 09/13/18 09/13/18 09/13/18 Range/Units 00:00 17:55 17:55 WBC (4.5-11.0) K/mm3 RBC (3.65-5.03) M/mm3 Hgb (11.8-15.2) gm/dl Hct (35.5-45.6) % MCV (84-94) fl MCH (28-32) pg MCHC (32-34) % RDW (13.2-15.2) % Plt Count (140-440) K/mm3 Lymph % (Auto) (13.4-35.0) % Parke % (Auto) (0.0-7.3) % Eos % (Auto) (0.0-4.3) % Baso % (Auto) (0.0-1.8) % Lymph # (1.2-5.4) K/mm3 Parke # (0.0-0.8) K/mm3 Eos # (0.0-0.4) K/mm3 Baso # (0.0-0.1) K/mm3 Seg Neutrophils % (40.0-70.0) % Seg Neutrophils # (1.8-7.7) K/mm3 Sodium (137-145) mmol/L Potassium (3.6-5.0) mmol/L Chloride (98-107) mmol/L Carbon Dioxide (22-30) mmol/L Anion Gap mmol/L BUN (9-20) mg/dL Creatinine (0.8-1.5) mg/dL Estimated GFR ml/min BUN/Creatinine Ratio % Glucose (75-100) mg/dL Calcium (8.4-10.2) mg/dL Magnesium (1.7-2.3) mg/dL Urine Color Yellow (Yellow) Urine Turbidity Cloudy (Clear) Urine pH 5.0 (5.0-7.0) Ur Specific Exline 1.014 (1.003-1.030) Urine Protein <15 mg/dl (Negative) mg/dL Urine Glucose (UA) Neg (Negative) mg/dL Urine Ketones Neg (Negative) mg/dL Urine Blood Neg (Negative) Urine Nitrite Neg (Negative) Urine Bilirubin Neg (Negative) Urine Urobilinogen < 2.0 (<2.0) mg/dL Ur Leukocyte Esterase Neg (Negative) Urine WBC (Auto) < 1.0 (0.0-6.0) /HPF Urine RBC (Auto) 3.0 (0.0-6.0) /HPF Urine Mucus Few /HPF Salicylates < 0.3 L (2.8-20.0) mg/dL Acetaminophen < 5.0 L (10.0-30.0) ug/mL Plasma/Serum Alcohol (0-0.07) % 09/13/18 09/13/18 09/13/18 Range/Units 17:55 17:55 17:55 WBC 9.3 (4.5-11.0) K/mm3 RBC 4.11 (3.65-5.03) M/mm3 Hgb 13.5 (11.8-15.2) gm/dl Hct 38.2 (35.5-45.6) % MCV 93 (84-94) fl MCH 33 H (28-32) pg MCHC 36 H (32-34) % RDW 14.2 (13.2-15.2) % Plt Count 317 (140-440) K/mm3 Lymph % (Auto) 25.5 (13.4-35.0) % Parke % (Auto) 8.5 H (0.0-7.3) % Eos % (Auto) 1.2 (0.0-4.3) % Baso % (Auto) 0.5 (0.0-1.8) % Lymph # 2.4 (1.2-5.4) K/mm3 Parke # 0.8 (0.0-0.8) K/mm3 Eos # 0.1 (0.0-0.4) K/mm3 Baso # 0.0 (0.0-0.1) K/mm3 Seg Neutrophils % 64.3 (40.0-70.0) % Seg Neutrophils # 6.0 (1.8-7.7) K/mm3 Sodium 136 L (137-145) mmol/L Potassium 4.5 (3.6-5.0) mmol/L Chloride 101.7 (98-107) mmol/L Carbon Dioxide 20 L (22-30) mmol/L Anion Gap 19 mmol/L BUN 10 (9-20) mg/dL Creatinine 0.9 (0.8-1.5) mg/dL Estimated GFR > 60 ml/min BUN/Creatinine Ratio 11 % Glucose 112 H (75-100) mg/dL Calcium 9.3 (8.4-10.2) mg/dL Magnesium (1.7-2.3) mg/dL Urine Color (Yellow) Urine Turbidity (Clear) Urine pH (5.0-7.0) Ur Specific Exline (1.003-1.030) Urine Protein (Negative) mg/dL Urine Glucose (UA) (Negative) mg/dL Urine Ketones (Negative) mg/dL Urine Blood (Negative) Urine Nitrite (Negative) Urine Bilirubin (Negative) Urine Urobilinogen (<2.0) mg/dL Ur Leukocyte Esterase (Negative) Urine WBC (Auto) (0.0-6.0) /HPF Urine RBC (Auto) (0.0-6.0) /HPF Urine Mucus /HPF Salicylates (2.8-20.0) mg/dL Acetaminophen (10.0-30.0) ug/mL Plasma/Serum Alcohol < 0.01 (0-0.07) % 09/13/18 Range/Units 18:33 WBC (4.5-11.0) K/mm3 RBC (3.65-5.03) M/mm3 Hgb (11.8-15.2) gm/dl Hct (35.5-45.6) % MCV (84-94) fl MCH (28-32) pg MCHC (32-34) % RDW (13.2-15.2) % Plt Count (140-440) K/mm3 Lymph % (Auto) (13.4-35.0) % Parke % (Auto) (0.0-7.3) % Eos % (Auto) (0.0-4.3) % Baso % (Auto) (0.0-1.8) % Lymph # (1.2-5.4) K/mm3 Parke # (0.0-0.8) K/mm3 Eos # (0.0-0.4) K/mm3 Baso # (0.0-0.1) K/mm3 Seg Neutrophils % (40.0-70.0) % Seg Neutrophils # (1.8-7.7) K/mm3 Sodium (137-145) mmol/L Potassium (3.6-5.0) mmol/L Chloride (98-107) mmol/L Carbon Dioxide (22-30) mmol/L Anion Gap mmol/L BUN (9-20) mg/dL Creatinine (0.8-1.5) mg/dL Estimated GFR ml/min BUN/Creatinine Ratio % Glucose (75-100) mg/dL Calcium (8.4-10.2) mg/dL Magnesium 2.00 (1.7-2.3) mg/dL Urine Color (Yellow) Urine Turbidity (Clear) Urine pH (5.0-7.0) Ur Specific Exline (1.003-1.030) Urine Protein (Negative) mg/dL Urine Glucose (UA) (Negative) mg/dL Urine Ketones (Negative) mg/dL Urine Blood (Negative) Urine Nitrite (Negative) Urine Bilirubin (Negative) Urine Urobilinogen (<2.0) mg/dL Ur Leukocyte Esterase (Negative) Urine WBC (Auto) (0.0-6.0) /HPF Urine RBC (Auto) (0.0-6.0) /HPF Urine Mucus /HPF Salicylates (2.8-20.0) mg/dL Acetaminophen (10.0-30.0) ug/mL Plasma/Serum Alcohol (0-0.07) % - Radiology Data Radiology results: report reviewed ct head: naf, bilateral ethmoid sinus disease with airl fluid levels may represent acute sinusitis. - Medical Decision Making Doxycycline was initiated for sinusitis identified on CAT scan. 1013 and transfer form signed pending mental health evaluation Patient received IV Keppra by mouth Keppra will be continued. Most recent medications on a record including Seroquel, lisinopril, and Zoloft will be continued. CIWA protocol initiated (given hx of alcohol abuse in medical record) - Differential Diagnosis seizure disorder, substance abuse, noncompliance, psychosis Critical Care Time: No Critical care attestation.: If time is entered above; I have spent that time in minutes in the direct care of this critically ill patient, excluding procedure time. ED Disposition Clinical Impression: Seizure, Paranoid schizophrenia, Psychosis, Ethmoid sinusitis, Methamphetamine abuse, History of alcohol dependence, Medical clearance for psychiatric admission Disposition: [id number]/TX-65 PSY HOSP/PSY UNIT Is pt being admited?: No Condition: Stable Time of Disposition: 00:35 (awaiting acceptance)
[2018-09-13] MEDS ORDERED: KCL 10MEQ/100ML 10 MEQ/100 ML BAG IV ONE (23:24)
[2018-09-14 00:22] LABS: Bilirubin,Urine NEG (Negative); Blood,Urine NEG (Negative); Color,Urine Yellow (Yellow); Mucus,Urine FEW /HPF; Protein,Urine <15 mg/dL mg/dL (Negative); Urobilinogen,Urine < 2.0 mg/dL (<2.0)
[2018-09-14 00:28] LABS: WBC,Urine < 1.0 /HPF (0.0-6.0)
[2018-09-14] MEDS ORDERED: ATIVAN PO PRN (00:34)
[2018-09-14] MEDS ORDERED: ATIVAN IV PRN (00:34)
[2018-09-14 00:41] LABS: Benzodiazepines Screen,Urine PRESUMPTIVE NEGATIVE; Cannabinoid Screen,Urine PRESUMPTIVE NEGATIVE; Cocaine Screen,Urine PRESUMPTIVE NEGATIVE; Methadone Screen,Urine PRESUMPTIVE NEGATIVE; Opiate Screen,Urine PRESUMPTIVE NEGATIVE
[2018-09-14 00:58] LABS: Amphetamine Screen,Urine PRESUMPTIVE POSITIVE
[2018-09-14] MEDS: VIBRAMYCIN PO SCH ×3 (02:34→22:25)
[2018-09-14] MEDS ORDERED: ZOLOFT ONE (09:46)
[2018-09-14] MEDS: KEPPRA PO SCH ×2 (09:48→22:25)
[2018-09-14] MEDS: ZESTRIL PO SCH (09:52)
[2018-09-14] MEDS ORDERED: ZOLOFT PO SCH (10:00)
[2018-09-14] MEDS ORDERED: ATIVAN PO ONE (13:32)
[2018-09-14] MEDS: VISTARIL PO SCH ×2 (15:05→20:29)
[2018-09-14] MEDS: IBUPROFEN PO PRN (15:05)
--- NOTE | 2018-09-14 17:37 | Consultation ---
History of Present Illness - Reason for Consult Consult date: 09/14/18 Reason for consult: Initial Psychiatric Evaluation - Chief Complaint Chief complaint: " I'm here for a seizure." - History of Present Psychiatric Illness Patient is a 48-year-old white male with a PMH of hypertension. He has a PPHx of substance abuse, anxiety, and paranoid schizophrenia. He presents to the hospital with complaints of going to have a seizure. Patient was stuttering and having visual hallucinations. Patient was recently released from [facility] where he was started on new medication. Patient also has a history of methamphetamine abuse and has presented to the ER in the past with psychosis, paranoia, and methamphetamine intoxication. Patient's UDS is positive for amphetamine. Today the patient is cooperative but anxious during the assessment. He is very fidgety. Patient's mood is labile with tangential thought process. Patient denies SI/HI's, A/VH's, and delusions. Patient states since he's started Zoloft he's had dizziness/syncope episodes increase in frequency. Patient's responses to questions are somewhat inappropriate/inaccurate. Current Psychiatric Medications: Zoloft 25mg po QAM, Seroquel 200mg po QAM, and Vistaril 25mg po TID PRN. Past Psychiatric History: Schizophrenia (2018); Multiple inpatient psychiatric hospitalizations ( [facility], [facility]); Outpatient Psychiatrist- unknown; no previous suicide attempts. Alcohol/ Drug Abuse History: Methamphetamine - 1/2 gram- " every other day", method- " I eat it"; last use- "2 days ago"; first use- " I was 13 years old." Abuse/Trauma History: Patient denies sexual, physical, and mental abuse. Social History: 10th grade- highest level of education; unemployed; SSI/appeal; lives with mother in [place], [place]; 2 children ( 1 son and 1 daughter); single. Family Hx of Psychiatric Illness and Substance Abuse: Mother- " cocaine"; Father- " everything" Medications and Allergies Allergies Allergy/AdvReac Type Severity Reaction Status Date / Time amoxicillin Allergy Anaphylaxis Verified 09/13/18 16:23 Penicillins Allergy Anaphylaxis Verified 09/13/18 16:23 Home Medications Medication Instructions Recorded Confirmed Last Taken Type Hydroxyzine HCl [hydrOXYzine] 50 mg PO TID 08/14/18 09/14/18 Unknown History Ibuprofen [Ibu] 800 mg PO TID PRN 08/14/18 09/14/18 Unknown History Lisinopril [Zestril] 10 mg PO DAILY #30 tablet 08/25/18 09/14/18 Unknown Rx QUEtiapine [SEROquel] 200 mg PO HS #30 tablet 08/25/18 09/14/18 Unknown Rx Esomeprazole Magnesium [NexIUM] 40 mg PO QDAY #30 capsule. 08/29/18 09/14/18 Unknown Rx QUEtiapine [SEROquel] 200 mg PO HS #30 tablet 08/29/18 09/14/18 Unknown Rx Sertraline [Zoloft] 25 mg PO QDAY #30 tablet 08/29/18 09/14/18 Unknown Rx hydrOXYzine PAMOATE [Vistaril] 25 mg PO TID #30 capsule 08/29/18 09/14/18 Unknown Rx Active Meds: Active Medications Doxycycline Hyclate (Vibramycin) 100 mg PO BID [facility] Stop: 09/20/18 10:01 Last Admin: 09/14/18 09:51 Dose: 100 mg Documented by: Hydroxyzine Pamoate (Vistaril) 25 mg PO TID [facility] Last Admin: 09/14/18 15:05 Dose: 25 mg Documented by: Ibuprofen (Motrin) 800 mg PO TID PRN PRN Reason: Pain, Moderate (4-6) Last Admin: 09/14/18 15:05 Dose: 800 mg Documented by: Levetiracetam (Keppra) 500 mg PO BID [facility] Last Admin: 09/14/18 09:48 Dose: 500 mg Documented by: Lisinopril (Zestril) 10 mg PO DAILY [facility] Last Admin: 09/14/18 09:52 Dose: 10 mg Documented by: Lorazepam (Ativan) 2 mg PO Q1HR PRN PRN Reason: CIWA-Ar 8-15 Lorazepam (Ativan) 4 mg PO Q1HR PRN PRN Reason: CIWA-Ar 16-25 Lorazepam (Ativan) 4 mg IV Q15MIN PRN PRN Reason: CIWA-Ar >25 Quetiapine Fumarate (Seroquel) 200 mg PO [facility] Sertraline HCl (Zoloft) 25 mg PO QDAY [facility] Last Admin: 09/14/18 09:52 Dose: 25 mg Documented by: Mental Status Exam - Vital signs Last Vital Signs Temp 98.0 F 09/14/18 07:21 Pulse 59 L 09/14/18 09:52 Resp 18 09/14/18 07:21 BP 101/72 09/14/18 09:52 Pulse Ox 99 09/14/18 07:21 - Exam Narrative exam: Mental Status Exam Appearance: in a hospital gown Behavior: regular eye contact Speech: regular rate and tone Mood: irritable, anxious; "great" Affect: incongruent Thought Process: circumstantial, tangential Thought Content: denies SI/HI's and AVH's ; appears paranoid Motor Activity: ambulatory; fidgety Cognition: A/O x 3 Insight: poor Judgment: poor Results Result Diagrams: 09/13/18 17:55 09/13/18 17:55 Abnormal lab results 09/13/18 09/13/18 09/13/18 Range/Units 17:55 17:55 17:55 MCH (28-32) pg MCHC (32-34) % [place]ata % (Auto) (0.0-7.3) % Sodium 136 L (137-145) mmol/L Carbon Dioxide 20 L (22-30) mmol/L Glucose 112 H (75-100) mg/dL Salicylates < 0.3 L (2.8-20.0) mg/dL Acetaminophen < 5.0 L (10.0-30.0) ug/mL 09/13/18 Range/Units 17:55 MCH 33 H (28-32) pg MCHC 36 H (32-34) % [place] % (Auto) 8.5 H (0.0-7.3) % Sodium (137-145) mmol/L Carbon Dioxide (22-30) mmol/L Glucose (75-100) mg/dL Salicylates (2.8-20.0) mg/dL Acetaminophen (10.0-30.0) ug/mL All other labs normal. Assessment and Plan Assessment and plan: Impression: PPHx of Schizophrenia. Substance Use DO (amphetamines). Today the patient is cooperative but anxious during the assessment. Patient is very fidgety. He denies SI/HI's, A/VH's, and delusions. He appears paranoid thr oughout the assessment. UDS positive for amphetamines. DDx: r/o Drug Induced Psychosis Recommendation/Plan: 1. Continue 1013. 2. Gather collateral information to determine proper disposition. 3. Discontinue Zoloft 50 mg PO daily for depression/anxiety due to side effects. Discussed possible suicidality/medication induced arden with the patient reference Zoloft. 4. Increase Seroquel 300mg po QHS mood/psychosis. Discussed metabolic side effects. 5. Continue Vistaril 25mg po TID anxiety. Discussed anti-cholinergic side effects. Disposition: Will refer to inpatient psychiatric services. Will staff with Dr. Kvng Lopez.
[2018-09-15] MEDS: VISTARIL PO SCH ×3 (10:10→22:27)
[2018-09-15] MEDS: VIBRAMYCIN PO SCH ×2 (10:11→22:27)
[2018-09-15] MEDS: ZESTRIL PO SCH (10:11)
[2018-09-15] MEDS: KEPPRA PO SCH ×2 (10:11→22:27)
[2018-09-15] MEDS ORDERED: ALUM-MAG HYDROX-SIMETH 200-200-20MG/5ML ONE (12:09)
[2018-09-15] MEDS ORDERED: ALUM-MAG HYDROX-SIMETH 200-200-20MG/5ML PO ONE (12:09)
--- NOTE | 2018-09-15 12:53 | Progress Note ---
Subjective - Reason for Consult Consult date: 09/15/18 Reason for consult: Psychiatry Follow-up - Chief Complaint Chief complaint: " I'm good" 48-year-old white male who presents to the ER for seizures and psychosis. This patient is known to me. Today the patient is anxious during the assessment. He could not suit still during the interview. He is known to use amphetamines per previous ER visits. He had to be redirected several times to keep him on topic. He was asked if her felt fearful of someone or something, he stated, "I don't know." He denies SI/HI's and AVH's. He denies denies any side effects of his medication. Mental Status Exam - Vital signs Last Vital Signs Temp 97.3 F L 09/15/18 07:46 Pulse 59 L 09/15/18 10:11 Resp 18 09/15/18 07:46 BP 121/86 09/15/18 10:11 Pulse Ox 98 09/15/18 07:46 - Exam Narrative exam: MSE: Appearance: in a hospital gown Behavior: regular eye contact Speech: regular rate and tone Mood: anxious Affect: congruent to mood Thought Process: tangential Thought Content: denies SI/HI's and AVH's, paranoia Motor Activity: fidgety Cognition: A/O x 3 Insight: variable Judgment: poor Assessment and Plan Impression: Substance Use DO (amphetamines). Hx of Alcohol Use DO. Unspecified Anxiety DO. Today the patient is anxious during the assessment. DDx: R/O Substance Induced Psychosis Recommendation/Plan: Continue 1013 and Seroquel 300 mg PO HS and Vistaril 25 mg PO TID for anxiety. Discussed possible metabolic side effects of Seroquel with the patient. Dispo: The patient was referred to inpatient psy services. Will staff with Dr. Kvng Lopez.
[2018-09-15] MEDS: ATIVAN PO PRN (14:50)
--- NOTE | 2018-09-15 20:09 | Cat Scan Report ---
FINAL REPORT EXAM: CT HEAD WO CONTRAST HISTORY: ABD PAIN TECHNIQUE: 2.5 millimeter axial images from the skullbase to the vertex. Comparison: None FINDINGS: There is no evidence of an acute intracranial process, intracranial hemorrhage or mass effect. The ventricles are normal size. The visualized portions of the orbits, paranasal and mastoid sinuses are notable for moderate bilater al ethmoid sinus mucosal thickening with air-fluid levels. This may represent changes of acute sinusi tis. The bony structures are unremarkable. IMPRESSION: 1. No evidence of an acute intracranial process, intracranial hemorrhage or mass effect. 2. Bilateral ethmoid sinus disease with air-fluid levels which may represent changes of acute sinusit is.
--- NOTE | 2018-09-16 08:53 | Progress Note ---
Subjective - Reason for Consult Consult date: 09/16/18 Reason for consult: Psychiatry Follow-up - Chief Complaint Chief complaint: " I want to go home" 48-year-old white male who presents to the ER for seizures and psychosis. This patient is known to me. Today the patient is cooperative during the assessment. He continue to be fidgety throughout the interview. His thought process is somewhat tangent. He denies SI/HI's and AVH's. He denies any side effects of his medications. Mental Status Exam - Vital signs Last Vital Signs Temp 97.5 F L 09/16/18 07:26 Pulse 78 09/16/18 07:26 Resp 18 09/16/18 07:26 BP 98/80 09/16/18 07:26 Pulse Ox 100 09/16/18 07:26 - Exam Narrative exam: MSE: Appearance: cooperative Behavior: regular eye contact Speech: regular rate and tone Mood: anxious Affect: congruent to mood Thought Process: tangential Thought Content: denies SI/HI's and AVH's, paranoia Motor Activity: fidgety Cognition: A/O x 3 Insight: variable Judgment: variable Assessment and Plan Impression: Substance Use DO (amphetamines). Hx of Alcohol Use DO. Unspecified Anxiety DO. Today the patient is anxious during the assessment. DDx: R/O Substance Induced Psychosis Recommendation/Plan: Reevaluate the 1013 in 24 hours and continue Seroquel 300 mg PO HS and Vistaril 25 mg PO TID for anxiety. Discussed possible metabolic side effects of Seroquel with the patient. Dispo: If the patient's 1013 is rescinded, he can follow up with [facility] for outpatient psy services. Will staff with Dr. Kvng Lopez.
[2018-09-16] MEDS: VISTARIL PO SCH ×3 (09:00→20:42)
[2018-09-16] MEDS: VIBRAMYCIN PO SCH ×2 (10:00→22:03)
[2018-09-16] MEDS: KEPPRA PO SCH ×2 (10:00→22:02)
[2018-09-16] MEDS: ZESTRIL PO SCH (12:28)
[2018-09-16] MEDS: ATIVAN PO PRN (17:05)
[2018-09-16] MEDS ORDERED: ALUM-MAG HYDROX-SIMETH 200-200-20MG/5ML PO ONE (17:38)
[2018-09-16] MEDS ORDERED: ATIVAN IM STA (17:38)
[2018-09-16] MEDS ORDERED: PEPCID PO ONE (17:38)
--- NOTE | 2018-09-16 17:50 | Event Note ---
Date: 09/16/18 Nursing team has come to this provider as patient complained of "heartburn." When I went back to evaluate the patient, he initially denied heartburn and chest pain. He requested to be discharged from the emergency room. He is still on a 1013. He initially indicated no heartburn or chest pain. As per review of old medical records, has had a cardiac workup recently at this facility which was negative, and a prior documentation "cardiology concluded that his chest pain was noncardiac." Patient also had a negative chest x-ray recently. He has normal S1, S2, regular rate and rhythm, with no murmurs, rubs or gallops, and has clear pulmonary findings. His EKG today has some motion artifact, but appears to be grossly unchanged from prior EKG from 08/29/2018. The patient will be medicated for his symptoms. EKG today shows bradycardic rhythm, 57 bpm, normal axis, QTC within normal limits, motion artifact, not consistent with ST elevation myocardial infarction, appears to be grossly unchanged from prior EKG from 08/29/2018.
[2018-09-17] MEDS: VISTARIL PO SCH ×3 (08:30→21:41)
[2018-09-17] MEDS: KEPPRA PO SCH ×2 (10:00→21:41)
[2018-09-17] MEDS: VIBRAMYCIN PO SCH ×2 (10:00→21:41)
[2018-09-17] MEDS: ZESTRIL PO SCH (10:36)
--- NOTE | 2018-09-17 15:04 | Progress Note ---
Subjective - Reason for Consult Consult date: 09/17/18 Reason for consult: Psychiatric Follow-up Evaluation - Chief Complaint Chief complaint: "I'm ready to go home now" Patient is a 48-year-old white male who presents to the ER for seizures and psychosis. This patient is known to me. Today the patient is cooperative but anxious during the assessment. He continue to be fidgety throughout the interview. His thought process is tangent. He states, "everything is fine. I'm ready to go home to my mother. Please say yes sweetheart." He denies SI/HI's and AVH's. Patient continues to exhibit inappropriate behavior. Patient needs redirection. He reports appropriate sleep and appetite. Patient is medication compliant. He denies any side effects of his medications. Mental Status Exam - Vital signs Last Vital Signs Temp 97.9 F 09/17/18 01:46 Pulse 71 09/17/18 10:36 Resp 16 09/17/18 01:46 BP 117/82 09/17/18 10:36 Pulse Ox 99 09/17/18 01:46 - Exam Narrative exam: Mental Status Exam Appearance: cooperative Behavior: regular eye contact Speech: regular rate and tone Mood: anxious, fidgety Affect: congruent to mood Thought Process: tangential Thought Content: denies SI/HI's and AVH's; + paranoia Motor Activity: fidgety Cognition: A/O x 3 Insight: variable Judgment: variable Assessment and Plan Impression: Substance Use DO (amphetamines). Hx of Alcohol Use DO. Unspecified Anxiety DO. Today the patient is anxious during the assessment. Most current CIWA 10. DDx: R/O Substance Induced Psychosis Recommendation/Plan: 1. Will reevaluate the 1013 in 24 hours. 2. Continue Seroquel 300 mg PO HS and Vistaril 25 mg PO TID for anxiety. Discussed possible metabolic side effects of Seroquel with the patient. Disposition: Patient accepted to [facility]. Awaiting transport time. Will staff with Dr. Kvng Lopez.
[2018-09-17] MEDS: ATIVAN PO PRN (15:58)
[2018-09-17] MEDS ORDERED: HABITROL TD SCH (17:00)
[2018-09-17] MEDS ORDERED: IBUPROFEN PO ONE (21:31)
[2018-09-17] MEDS: IBUPROFEN PO PRN (21:46)
[2018-09-18] MEDS ORDERED: IBUPROFEN PO ONE (00:36)
[2018-09-18] MEDS: IBUPROFEN PO PRN (02:44)
[2018-09-18 08:57] VITALS: BP 125/91
--- NOTE | 2018-09-18 09:10 | Progress Note ---
Subjective - Reason for Consult Consult date: 09/18/18 Reason for consult: Psychiatry Follow-up - Chief Complaint Chief complaint: "I'm okay" Patient is a 48-year-old white male who presents to the ER for seizures and psychosis. This patient is known to me. Today the patient is calm and cooperative during the assessment. He is more organized today. He stated that he plan to follow up with [facility] for outpatient psy services. He denies SI/HI's and AVH's. He denies any side effects of his medication. Mental Status Exam - Vital signs Last Vital Signs Temp 97.5 F L 09/18/18 08:56 Pulse 73 09/18/18 08:56 Resp 16 09/18/18 08:56 BP 125/91 09/18/18 08:56 Pulse Ox 98 09/18/18 08:56 - Exam Narrative exam: MSE: Appearance: calm, cooperative Behavior: regular eye contact Speech: regular rate and tone Mood: "better" Affect: congruent to mood Thought Process: more organized Thought Content: denies SI/HI's and AVH's Motor Activity: ambulatory Cognition: A/O x 3 Insight: appropriate Judgment: appropriate Assessment and Plan Impression: Substance Use DO (amphetamines). Hx of Alcohol Use DO. Unspecified Anxiety DO. Today the patient is calm and cooperative during the assessment. The patient's psychosis has resolved. DDx: R/O Substance Induced Psychosis Recommendation/Plan: Rescind 1013 and continue Seroquel 300 mg PO HS and Vistaril 25 mg PO TID for anxiety. Discussed possible metabolic side effects of Seroquel with the patient. Discussed the importance to abstain from recreational drug use and alcohol consumption (etoh). Dispo: The patient can follow up with [facility] for outpatient psy services. Will staff with Dr. Sagastume.
[2018-09-18] MEDS: VISTARIL PO SCH (09:43)
[2018-09-18] MEDS: ZESTRIL PO SCH (09:44)
[2018-09-18] MEDS: VIBRAMYCIN PO SCH (09:44)
[2018-09-18] MEDS: KEPPRA PO SCH (09:44)
--- NOTE | 2018-09-18 12:22 | Emergency Department Report ---
Blank Doc - Documentation Documentation: I reviewed recommendations from psychiatric team. 1013 involuntary hold has b een rescinded. Outpatient recommendations and resources provided. I spoke with patient prior to discharge. Mr. Taveras did not have any concerns or needs at this time.
== END 2018-09-18 12:32 | disposition home or self-care (01) ==
LOC: EEVIPCON 16:16 → ED 16:16
DX: R56.9 Unspecified convulsions (principal); F20.0 Paranoid schizophrenia; F29 Unspecified psychosis not due to a substance or known physiological condition; J32.2 Chronic ethmoidal sinusitis; F15.10 Other stimulant abuse, uncomplicated; F10.20 Alcohol dependence, uncomplicated; F17.200 Nicotine dependence, unspecified, uncomplicated; I10 Essential (primary) hypertension; Z88.1 Allergy status to other antibiotic agents; Z88.0 Allergy status to penicillin; F41.9 Anxiety disorder, unspecified
CPT/HCPCS: 36415; 70450; 80048; 80307; 81001; 83735; 85025; 96372; 96374; 96375; 99285; G0480; J1953; J2060; J3486; 80320; J3480; Q0177

== ENCOUNTER 2018-09-18 19:41 | Emergency (ER) | payer SELFPAY ==
[2018-09-18 21:05] LABS: Bacteria,Urine 2+ /HPF (Negative); Bilirubin,Urine NEG (Negative); Blood,Urine SM (Negative); Color,Urine Yellow (Yellow); Mucus,Urine FEW /HPF; Protein,Urine <15 mg/dL mg/dL (Negative); Urobilinogen,Urine < 2.0 mg/dL (<2.0)
[2018-09-18 21:12] LABS: Benzodiazepines Screen,Urine PRESUMPTIVE NEGATIVE; Cannabinoid Screen,Urine PRESUMPTIVE NEGATIVE; Cocaine Screen,Urine PRESUMPTIVE NEGATIVE; Methadone Screen,Urine PRESUMPTIVE NEGATIVE; Opiate Screen,Urine PRESUMPTIVE NEGATIVE
--- NOTE | 2018-09-18 21:33 | Emergency Department Report ---
ED Psych HPI - General Chief Complaint: Psych Stated Complaint: MH Time Seen by Provider: 09/18/18 20:30 Source: patient Mode of arrival: Ambulatory - History of Present Illness Initial Comments: For his initial rounds history of schizophrenia presents to ED for mental health evaluation. Patient's mother states that he is paranoid. The patient believes his mother wants to shoot him. The patient denies SI, HI, or hallucinations. Patient has to be redirected multiple times during questioning. Thoughts are disorganized. Complaint: other (paranoia) -: unknown Associated Psychiatric Symptoms: other (paranoia) Quality: constant Improves With: none Worsens With: none Context: other (unknown) Associated Symptoms: denies other symptoms Treatments Prior to Arrival: none - Related Data Home Medications Medication Instructions Recorded Confirmed Last Taken Hydroxyzine HCl [hydrOXYzine] 50 mg PO TID 08/14/18 09/18/18 Unknown Ibuprofen [Ibu] 800 mg PO TID PRN 08/14/18 09/18/18 Unknown Previous Rx's Medication Instructions Recorded Last Taken Type Lisinopril [Zestril] 10 mg PO DAILY #30 tablet 08/25/18 Unknown Rx QUEtiapine [SEROquel] 200 mg PO HS #30 tablet 08/25/18 Unknown Rx Esomeprazole Magnesium [NexIUM] 40 mg PO QDAY #30 capsule. 08/29/18 Unknown Rx QUEtiapine [SEROquel] 200 mg PO HS #30 tablet 08/29/18 Unknown Rx Sertraline [Zoloft] 25 mg PO QDAY #30 tablet 08/29/18 Unknown Rx hydrOXYzine PAMOATE [Vistaril] 25 mg PO TID #30 capsule 08/29/18 Unknown Rx levETIRAcetam [Keppra] 500 mg PO BID #60 tablet 09/18/18 Unknown Rx Allergies Allergy/AdvReac Type Severity Reaction Status Date / Time amoxicillin Allergy Anaphylaxis Verified 09/13/18 16:23 Penicillins Allergy Anaphylaxis Verified 09/13/18 16:23 ED Review of Systems ROS: Stated complaint: MH Other details as noted in HPI Comment: All other systems reviewed and negative Psychiatric: other (reports paranoia). denies: auditory hallucinations, visual hallucinations, homicidal thoughts, suicidal thoughts ED Past Medical Hx - Past Medical History Previous Medical History?: Yes Hx Hypertension: Yes Hx CVA: No Hx Heart Attack/AMI: No Hx Congestive Heart Failure: No Hx Diabetes: No Hx Deep Vein Thrombosis: No Hx Pulmonary Embolism: No Hx GERD: No Hx Liver Disease: No Hx Renal Disease: No Hx of Cancer: No Hx Sickle Cell Disease: No Hx Arthritis: No Hx Headaches / Migraines: No Hx Seizures: No Hx Kidney Stones: No Hx Psychiatric Treatment: Yes (anxiety, substance abuse, Parinoid schizo) Hx Asthma: No Hx COPD: No Hx Tuberculosis: No Hx Dementia: No Hx HIV: No Additional medical history: L shoulder - Surgical History Past Surgical History?: Yes Hx Coronary Stent: No Hx Open Heart Surgery: No Hx Pacemaker: No Hx Internal Defibrillator: No Hx Cholecystectomy: No Hx Appendectomy: Yes Hx Breast Surgery: No Additional Surgical History: LEFT LEG SURGERY - Social History Smoking Status: Current Every Day Smoker Substance Use Type: None - Medications Home Medications: Home Medications Medication Instructions Recorded Confirmed Last Taken Type Hydroxyzine HCl [hydrOXYzine] 50 mg PO TID 08/14/18 09/18/18 Unknown History Ibuprofen [Ibu] 800 mg PO TID PRN 08/14/18 09/18/18 Unknown History Lisinopril [Zestril] 10 mg PO DAILY #30 tablet 08/25/18 09/18/18 Unknown Rx QUEtiapine [SEROquel] 200 mg PO HS #30 tablet 08/25/18 09/18/18 Unknown Rx Esomeprazole Magnesium [NexIUM] 40 mg PO QDAY #30 capsule. 08/29/18 09/18/18 Unknown Rx QUEtiapine [SEROquel] 200 mg PO HS #30 tablet 08/29/18 09/18/18 Unknown Rx Sertraline [Zoloft] 25 mg PO QDAY #30 tablet 08/29/18 09/18/18 Unknown Rx hydrOXYzine PAMOATE [Vistaril] 25 mg PO TID #30 capsule 08/29/18 09/18/18 Unknown Rx levETIRAcetam [Keppra] 500 mg PO BID #60 tablet 09/18/18 09/18/18 Unknown Rx ED Physical Exam - General Limitations: No Limitations General appearance: alert, in no apparent distress - Head Head exam: Present: atraumatic, normocephalic - Eye Eye exam: Present: normal appearance - ENT ENT exam: Present: mucous membranes moist - Neck Neck exam: Present: normal inspection - Respiratory Respiratory exam: Present: normal lung sounds bilaterally. Absent: respiratory distress - Cardiovascular Cardiovascular Exam: Present: regular rate, normal rhythm - GI/Abdominal GI/Abdominal exam: Present: soft. Absent: distended - Extremities Exam Extremities exam: Present: normal inspection - Neurological Exam Neurological exam: Present: alert - Psychiatric Psychiatric exam: Present: anxious, other (paranoid; disorganized thoughts) ED Course Vital Signs 09/18/18 09/18/18 09/19/18 19:49 20:08 02:00 Temperature 98.6 F 98.3 F Pulse Rate 145 H 145 H 110 H Respiratory 16 18 Rate Blood Pressure 204/110 Blood Pressure 204/111 153/98 171/99 [Right] O2 Sat by Pulse 99 95 Oximetry 09/19/18 09/19/18 09/19/18 11:30 16:22 16:50 Temperature 97.3 F L 98.4 F Pulse Rate 84 95 H 95 H Respiratory 18 20 Rate Blood Pressure 145/107 Blood Pressure 159/94 145/107 [Right] O2 Sat by Pulse 99 97 Oximetry 09/19/18 09/20/18 19:20 01:53 Temperature 98.7 F 97.9 F Pulse Rate 82 98 H Respiratory 18 20 Rate Blood Pressure Blood Pressure 141/94 101/68 [Right] O2 Sat by Pulse 97 99 Oximetry ED Medical Decision Making - Lab Data Result diagrams: 09/18/18 22:56 09/18/18 22:56 - Medical Decision Making 48-year-old male with paranoid schizophrenia and methamphetamine abuse. Patient believes his mother is trying to kill him. Patient placed on 1013. Patient has been medically cleared for mental health evaluation. Will dispo per psych. - Differential Diagnosis schizophrenia, drug abuse Critical care attestation.: If time is entered above; I have spent that time in minutes in the direct care of this critically ill patient, excluding procedure time. ED Disposition Clinical Impression: Methamphetamine abuse, Paranoid schizophrenia, Medical clearance for psychiatric admission Disposition: DC/TX-65 PSY HOSP/PSY UNIT Is pt being admited?: No Condition: Stable Referrals: SURAJ BENAVIDEZ DO [Primary Care Provider] - 3-5 Days
[2018-09-18] MEDS ORDERED: NACL 0.9% 1000 ML 1,000 ML IV ONE (21:36)
[2018-09-18] MEDS ORDERED: ATIVAN IV ONE (21:36)
[2018-09-18 21:40] LABS: Amphetamine Screen,Urine PRESUMPTIVE POSITIVE
[2018-09-18 23:21] LABS: Basophils % (Auto) 0.2 % (0.0-1.8); Eosinophils % (Auto) 0.2 % (0.0-4.3); Hemoglobin 14.7 gm/dl (11.8-15.2); Lymphocytes # (Auto) 1.6 K/mm3 (1.2-5.4); Lymphocytes % (Auto) 9.5 % (13.4-35.0); Mean Corpuscular HGB Conc 34 % (32-34); Mean Corpuscular Volume 95 fl (84-94); Monocytes # (Auto) 1.3 K/mm3 (0.0-0.8); Monocytes % (Auto) 7.6 % (0.0-7.3); Platelet Count 381 K/mm3 (140-440); Red Blood Count 4.63 M/mm3 (3.65-5.03); Red Cell Distribution Width 13.9 % (13.2-15.2)
[2018-09-18 23:42] LABS: Alanine Aminotransferase 12 units/L (7-56); Albumin 4.3 g/dL (3.9-5); BUN/Creatinine Ratio 18; Blood Urea Nitrogen 14 mg/dL (9-20); Calcium 9.5 mg/dL (8.4-10.2); Hemolysis Index 53
[2018-09-18 23:43] LABS: Bilirubin,Direct < 0.2 mg/dL (0-0.2)
[2018-09-19] MEDS ORDERED: VISTARIL PO PRN (12:46)
--- NOTE | 2018-09-19 13:21 | Consultation ---
History of Present Illness - Reason for Consult Consult date: 09/19/18 Reason for consult: Mental Health Evaluation Requesting physician: CHERISE MCNAIR - Chief Complaint Chief complaint: "I don't know what happened" - History of Present Psychiatric Illness 48 y.o. white male who presented to the ER for acute psychosis. This patient is known to me. The patient was discharged yesterday hours before he returned back to the ER. Today the patient is anxious during the assessment. He rambles about nothing throughout the interview. He had to be redirected several times to keep him on topic. He was asked about his mother wanting to shot him, he stated, "That's possible." He denies SI/HI's, but would not confirm or deny AVH's. Medications and Allergies Allergies Allergy/AdvReac Type Severity Reaction Status Date / Time amoxicillin Allergy Anaphylaxis Verified 09/13/18 16:23 Penicillins Allergy Anaphylaxis Verified 09/13/18 16:23 Home Medications Medication Instructions Recorded Confirmed Last Taken Type Hydroxyzine HCl [hydrOXYzine] 50 mg PO TID 08/14/18 09/18/18 Unknown History Ibuprofen [Ibu] 800 mg PO TID PRN 08/14/18 09/18/18 Unknown History Lisinopril [Zestril] 10 mg PO DAILY #30 tablet 08/25/18 09/18/18 Unknown Rx QUEtiapine [SEROquel] 200 mg PO HS #30 tablet 08/25/18 09/18/18 Unknown Rx Esomeprazole Magnesium [NexIUM] 40 mg PO QDAY #30 capsule. 08/29/18 09/18/18 Unknown Rx QUEtiapine [SEROquel] 200 mg PO HS #30 tablet 08/29/18 09/18/18 Unknown Rx Sertraline [Zoloft] 25 mg PO QDAY #30 tablet 08/29/18 09/18/18 Unknown Rx hydrOXYzine PAMOATE [Vistaril] 25 mg PO TID #30 capsule 08/29/18 09/18/18 Unknown Rx levETIRAcetam [Keppra] 500 mg PO BID #60 tablet 09/18/18 09/18/18 Unknown Rx Active Meds: Active Medications Hydroxyzine Pamoate (Vistaril) 25 mg PO TID PRN PRN Reason: Anxiety Stop: 09/20/18 11:59 Levetiracetam (Keppra) 500 mg PO BID RAYMOND Lisinopril (Zestril) 10 mg PO DAILY RAYMOND Past psychiatric history - Past Medical History Past Medical History: hypertension Past Surgical History: No surgical history - past Psychiatric treatment and history psychiatric treatment history: Hx of substance abuse and inpatient psy services. Denies a fam psy hx. - Social History Social history: lives with family Mental Status Exam - Vital signs Last Vital Signs Temp 97.3 F L 09/19/18 11:30 Pulse 84 09/19/18 11:30 Resp 18 09/19/18 11:30 BP 159/94 09/19/18 11:30 Pulse Ox 99 09/19/18 11:30 - Exam Narrative exam: MSE: Appearance: disheveled Behavior: regular eye contact Speech: pressured speech Mood: anxious Affect: constricted Thought Process: disorganized Thought Content: denies SI/HI's, paranoia, delusional Motor Activity: ambulatory Cognition: A/O x 3 Insight: poor Judgment: poor Results Result Diagrams: 09/18/18 22:56 09/18/18 22:56 Abnormal lab results 09/18/18 09/18/18 09/18/18 Range/Units 22:56 22:56 22:56 WBC 16.9 H (4.5-11.0) K/mm3 MCV 95 H (84-94) fl Lymph % (Auto) 9.5 L (13.4-35.0) % [place] % (Auto) 7.6 H (0.0-7.3) % [place] # 1.3 H (0.0-0.8) K/mm3 Seg Neutrophils % 82.5 H (40.0-70.0) % Seg Neutrophils # 13.9 H (1.8-7.7) K/mm3 Sodium 134 L (137-145) mmol/L Carbon Dioxide 21 L (22-30) mmol/L Glucose 116 H (75-100) mg/dL Salicylates < 0.3 L (2.8-20.0) mg/dL Acetaminophen (10.0-30.0) ug/mL 09/18/18 Range/Units 22:56 WBC (4.5-11.0) K/mm3 MCV (84-94) fl Lymph % (Auto) (13.4-35.0) % [place] % (Auto) (0.0-7.3) % [place] # (0.0-0.8) K/mm3 Seg Neutrophils % (40.0-70.0) % Seg Neutrophils # (1.8-7.7) K/mm3 Sodium (137-145) mmol/L Carbon Dioxide (22-30) mmol/L Glucose (75-100) mg/dL Salicylates (2.8-20.0) mg/dL Acetaminophen < 5.0 L (10.0-30.0) ug/mL All other labs normal. Assessment and Plan Assessment and plan: Impression: Unspecified Psychosis. Substance Use DO (amphetamines). Hx of Alcohol Use DO. Unspecified Anxiety DO. Today the patient is anxious during the assessment. DDx: Substance Induced Psychosis Recommendation/Plan: Continue 1013 and start Seroquel 300 mg PO HS for psychosis and Vistaril 25 mg PO TID for anxiety. Discussed possible metabolic side ef fects of Seroquel with the patient. Discussed the importance to abstain from recreational drug use and alcohol consumption (etoh). Dispo: The patient was referred to inpatient psy services. Will staff with Dr. Sagastume.
[2018-09-19] MEDS: VISTARIL PO SCH ×2 (14:58→20:48)
[2018-09-19] MEDS ORDERED: ZESTRIL PO ONE (16:46)
[2018-09-19] MEDS: KEPPRA PO SCH (21:53)
[2018-09-19] MEDS ORDERED: ALUM-MAG HYDROX-SIMETH 200-200-20MG/5ML PO ONE (22:09)
[2018-09-19] MEDS ORDERED: NACL 0.9% 1000 ML 1,000 ML ONE (23:57)
[2018-09-20] MEDS ORDERED: NACL 0.9% 1000 ML 1,000 ML IV ONE
[2018-09-20] MEDS: VISTARIL PO SCH ×3 (08:55→20:50)
[2018-09-20] MEDS ORDERED: ZESTRIL PO SCH (10:00)
[2018-09-20] MEDS: KEPPRA PO SCH (10:20)
--- NOTE | 2018-09-20 10:24 | Progress Note ---
Subjective - Reason for Consult Consult date: 09/20/18 Reason for consult: Psychiatry Follow-up - Chief Complaint Chief complaint: "I can do better" 48 y.o. white male who presented to the ER for acute psychosis. This patient is known to me. Today the patient is still anxious during the assessment. His reason for coming back to the ER was not logical. The patient had to be redirected several times to keep him on topic. He would not confirm or deny marcial ng fearful of someone or something when asked. He denies SI/HI's and AVH's. No indications of side effects of his medication. Mental Status Exam - Vital signs Last Vital Signs Temp 97.6 F 09/20/18 07:47 Pulse 92 H 09/20/18 07:47 Resp 18 09/20/18 07:47 BP 100/76 09/20/18 07:47 Pulse Ox 99 09/20/18 07:47 - Exam Narrative exam: MSE: Appearance: disheveled Behavior: regular eye contact Speech: regular rate and tone Mood: anxious Affect: congruent to mood Thought Process: disorganized Thought Content: denies SI/HI's, paranoia, delusional Motor Activity: ambulatory Cognition: A/O x 3 Insight: poor Judgment: poor Assessment and Plan Impression: Unspecified Psychosis. Substance Use DO (amphetamines). Hx of Alcohol Use DO. Unspecified Anxiety DO. Today the patient is syill anxious during the assessment. DDx: Substance Induced Psychosis Recommendation/Plan: Continue 1013, Seroquel 300 mg PO HS for psychosi, and Vistaril 25 mg PO TID for anxiety. Discussed possible metabolic side effects of Seroquel with the patient. Discussed the importance to abstain from recreational drug use and alcohol consumption (etoh). Dispo: The patient was referred to inpatient psy services. Will staff with Dr. Sagastume.
[2018-09-20] MEDS: ATIVAN PO PRN ×2 (12:14→17:43)
[2018-09-20 19:44] VITALS: BP 95/64
[2018-09-20] MEDS ORDERED: ALUM-MAG HYDROX-SIMETH 200-200-20MG/5ML PO ONE (21:13)
== END 2018-09-20 21:45 ==
LOC: ED 19:41 → EEVIPCON 19:41 → ED 09-20 21:45
DX: F20.0 Paranoid schizophrenia (principal); F41.9 Anxiety disorder, unspecified; F15.10 Other stimulant abuse, uncomplicated; I10 Essential (primary) hypertension; F17.200 Nicotine dependence, unspecified, uncomplicated; Z88.1 Allergy status to other antibiotic agents; Z88.0 Allergy status to penicillin
CPT/HCPCS: 36415; 80048; 80076; 80307; 81001; 84484; 85025; 93005; 93010; 96361; 96374; 99285; G0480; J2060; J7030; 80320; Q0177

== ENCOUNTER 2018-09-30 05:56 | Emergency (ER) | payer SELFPAY ==
[2018-09-30 07:05] LABS: Basophils % (Auto) 0.2 % (0.0-1.8); Eosinophils # (Auto) 0.1 K/mm3 (0.0-0.4); Eosinophils % (Auto) 0.7 % (0.0-4.3); Hemoglobin 13.6 gm/dl (11.8-15.2); Lymphocytes # (Auto) 2.3 K/mm3 (1.2-5.4); Lymphocytes % (Auto) 17.6 % (13.4-35.0); Mean Corpuscular HGB Conc 34 % (32-34); Mean Corpuscular Volume 93 fl (84-94); Monocytes # (Auto) 1.4 K/mm3 (0.0-0.8); Monocytes % (Auto) 11.1 % (0.0-7.3); Platelet Count 391 K/mm3 (140-440); Red Blood Count 4.29 M/mm3 (3.65-5.03); Red Cell Distribution Width 13.8 % (13.2-15.2)
[2018-09-30 07:21] LABS: BUN/Creatinine Ratio 16; Blood Urea Nitrogen 16 mg/dL (9-20); Hemolysis Index 7
--- NOTE | 2018-09-30 07:39 | Emergency Department Report ---
ED Psych HPI - General Chief Complaint: Psych Stated Complaint: ANXIETY Time Seen by Provider: 09/30/18 07:16 Source: patient, EMS Mode of arrival: Ambulatory - History of Present Illness Initial Comments: Mr. Taveras is a 48-year-old male with history of paranoid schizophrenia and polysubstance abuse who presents with paranoid delusions. He has a persistent delusion that a rancher in his mother's home name Steven is going to kill him and everyone in the home. He also is concerned that his cell phone is being manipulated. He did admit to taking xanax and methamphetamine prior to arrival. Also admitted to drinking alcohol. He is not currently taking medication. He felt that Seroquel 300 mg was too high of a dosedose. He denies any physical complaints. Hx of seizure which was induced by methamphetamine. MD Complaint: other (paranoia, delusional, anxiety) -: days(s) (several days) Associated Psychiatric Symptoms: racing thoughts, delusions History of same: Yes Quality: constant Improves With: none Worsens With: achohol, drug use Context: recent alcohol abuse, recent drug abuse, not taking psychiatric, significant life stressor (financial stress, not able to obtain disability ) Associated Symptoms: denies other symptoms Treatments Prior to Arrival: none - Related Data Home Medications Medication Instructions Recorded Confirmed Last Taken Hydroxyzine HCl [hydrOXYzine] 50 mg PO TID 08/14/18 09/18/18 Unknown Ibuprofen [Ibu] 800 mg PO TID PRN 08/14/18 09/18/18 Unknown Previous Rx's Medication Instructions Recorded Last Taken Type Lisinopril [Zestril] 10 mg PO DAILY #30 tablet 08/25/18 Unknown Rx QUEtiapine [SEROquel] 200 mg PO HS #30 tablet 08/25/18 Unknown Rx Esomeprazole Magnesium [NexIUM] 40 mg PO QDAY #30 capsule. 08/29/18 Unknown Rx QUEtiapine [SEROquel] 200 mg PO HS #30 tablet 08/29/18 Unknown Rx Sertraline [Zoloft] 25 mg PO QDAY #30 tablet 08/29/18 Unknown Rx hydrOXYzine PAMOATE [Vistaril] 25 mg PO TID #30 capsule 08/29/18 Unknown Rx levETIRAcetam [Keppra] 500 mg PO BID #60 tablet 09/18/18 Unknown Rx Allergies Allergy/AdvReac Type Severity Reaction Status Date / Time amoxicillin Allergy Anaphylaxis Verified 09/13/18 16:23 Penicillins Allergy Anaphylaxis Verified 09/13/18 16:23 ED Review of Systems ROS: Stated complaint: ANXIETY Other details as noted in HPI Comment: All other systems reviewed and negative Constitutional: denies: fever, malaise Respiratory: denies: cough Cardiovascular: denies: chest pain ED Past Medical Hx - Past Medical History Previous Medical History?: Yes Hx Hypertension: Yes Hx CVA: No Hx Heart Attack/AMI: No Hx Congestive Heart Failure: No Hx Diabetes: No Hx Deep Vein Thrombosis: No Hx Pulmonary Embolism: No Hx GERD: No Hx Liver Disease: No Hx Renal Disease: No Hx Sickle Cell Disease: No Hx Arthritis: No Hx Headaches / Migraines: No Hx Seizures: No Hx Kidney Stones: No Hx Psychiatric Treatment: Yes (anxiety, substance abuse, Parinoid schizo) Hx Asthma: No Hx COPD: No Hx Tuberculosis: No Hx Dementia: No Hx HIV: No Additional medical history: L shoulder - Surgical History Past Surgical History?: Yes Hx Coronary Stent: No Hx Open Heart Surgery: No Hx Pacemaker: No Hx Internal Defibrillator: No Hx Cholecystectomy: No Hx Appendectomy: Yes Hx Breast Surgery: No Additional Surgical History: LEFT LEG SURGERY - Social History Smoking Status: Current Every Day Smoker Substance Use Type: Alcohol, Other - Medications Home Medications: Home Medications Medication Instructions Recorded Confirmed Last Taken Type Hydroxyzine HCl [hydrOXYzine] 50 mg PO TID 08/14/18 09/18/18 Unknown History Ibuprofen [Ibu] 800 mg PO TID PRN 08/14/18 09/18/18 Unknown History Lisinopril [Zestril] 10 mg PO DAILY #30 tablet 08/25/18 09/18/18 Unknown Rx QUEtiapine [SEROquel] 200 mg PO HS #30 tablet 08/25/18 09/18/18 Unknown Rx Esomeprazole Magnesium [NexIUM] 40 mg PO QDAY #30 capsule. 08/29/18 09/18/18 Unknown Rx QUEtiapine [SEROquel] 200 mg PO HS #30 tablet 08/29/18 09/18/18 Unknown Rx Sertraline [Zoloft] 25 mg PO QDAY #30 tablet 08/29/18 09/18/18 Unknown Rx hydrOXYzine PAMOATE [Vistaril] 25 mg PO TID #30 capsule 08/29/18 09/18/18 Unknown Rx levETIRAcetam [Keppra] 500 mg PO BID #60 tablet 09/18/18 09/18/18 Unknown Rx ED Physical Exam - General Limitations: No Limitations General appearance: alert, in no apparent distress - Head Head exam: Present: atraumatic, normocephalic - Eye Eye exam: Present: normal appearance - ENT ENT exam: Present: mucous membranes moist - Neck Neck exam: Present: normal inspection. Absent: tenderness, meningismus - Respiratory Respiratory exam: Present: normal lung sounds bilaterally. Absent: respiratory distress, wheezes, rales, rhonchi - Cardiovascular Cardiovascular Exam: Present: regular rate, normal rhythm, normal heart sounds. Absent: systolic murmur, diastolic murmur, rubs, gallop - GI/Abdominal GI/Abdominal exam: Present: soft, normal bowel sounds. Absent: distended, tenderness, guarding, rebound - Rectal Rectal exam: Present: deferred - Extremities Exam Extremities exam: Present: normal inspection - Back Exam Back exam: Present: normal inspection - Neurological Exam Neurological exam: Present: alert, oriented X3 - Psychiatric Psychiatric exam: Present: agitated, anxious, other (cooperative, poor insight, circular pressured speech, delusional) - Skin Skin exam: Present: warm, dry, intact, normal color. Absent: rash ED Course Vital Signs 09/30/18 09/30/18 09/30/18 06:04 09:14 09:15 Temperature 97.9 F 97.3 F L Pulse Rate 118 H 109 H Respiratory 20 20 20 Rate Blood Pressure 165/108 Blood Pressure 143/81 [Left] O2 Sat by Pulse 96 100 97 Oximetry ED Medical Decision Making - Lab Data Result diagrams: 09/30/18 06:49 09/30/18 06:49 Laboratory Results - last 24 hr 09/30/18 09/30/18 09/30/18 06:49 06:49 06:49 WBC RBC Hgb Hct MCV MCH MCHC RDW Plt Count Lymph % (Auto) [place] % (Auto) Eos % (Auto) Baso % (Auto) Lymph # [place] # Eos # Baso # Seg Neutrophils % Seg Neutrophils # Sodium 140 Potassium 4.2 Chloride 100.3 Carbon Dioxide 21 L Anion Gap 23 BUN 16 Creatinine 1.0 Estimated GFR > 60 BUN/Creatinine Ratio 16 Glucose 102 H Calcium 9.0 Salicylates < 0.3 L Acetaminophen < 5.0 L Plasma/Serum Alcohol 09/30/18 09/30/18 06:49 06:49 WBC 13.0 H RBC 4.29 Hgb 13.6 Hct 40.0 MCV 93 MCH 32 MCHC 34 RDW 13.8 Plt Count 391 Lymph % (Auto) 17.6 [place] % (Auto) 11.1 H Eos % (Auto) 0.7 Baso % (Auto) 0.2 Lymph # 2.3 [place] # 1.4 H Eos # 0.1 Baso # 0.0 Seg Neutrophils % 70.4 H Seg Neutrophils # 9.1 H Sodium Potassium Chloride Carbon Dioxide Anion Gap BUN Creatinine Estimated GFR BUN/Creatinine Ratio Glucose Calcium Salicylates Acetaminophen Plasma/Serum Alcohol < 0.01 - Medical Decision Making Mr. Taveras presents with acute psychosis complicated by polysubstance abuse, namely alcohol, methamphetamine and Xanax. Due to persistent paronoia and disorganized thought patter, placed on 1013 for high risk of self-harm to him self and possibly harm to others. He is medically clear for psychiatric care. Elevated WBC noted without evidence of infection. WBC attributed to demarginalization with use of sympathomimetics. UDS positive for amphetamine Mr. Taveras is medically clear for psychiatric care. Critical care attestation.: If time is entered above; I have spent that time in minutes in the direct care of this critically ill patient, excluding procedure time. ED Disposition Clinical Impression: Paranoid schizophrenia, Psychosis, Methamphetamine abuse, Medical clearance for psychiatric admission Disposition: DC/TX-65 PSY HOSP/PSY UNIT Is pt being admited?: No Does the pt Need Aspirin: No Condition: Stable
[2018-09-30 08:23] LABS: Benzodiazepines Screen,Urine PRESUMPTIVE NEGATIVE; Cannabinoid Screen,Urine PRESUMPTIVE NEGATIVE; Cocaine Screen,Urine PRESUMPTIVE NEGATIVE; Methadone Screen,Urine PRESUMPTIVE NEGATIVE; Opiate Screen,Urine PRESUMPTIVE NEGATIVE
[2018-09-30 08:28] LABS: Bacteria,Urine 1+ /HPF (Negative); Bilirubin,Urine NEG (Negative); Blood,Urine NEG (Negative); Color,Urine Straw (Yellow); Mucus,Urine FEW /HPF; Protein,Urine <15 mg/dL mg/dL (Negative); Sperm,Urine 3+ /HPF (NP); Urobilinogen,Urine < 2.0 mg/dL (<2.0)
[2018-09-30 08:36] LABS: Amphetamine Screen,Urine PRESUMPTIVE POSITIVE
[2018-09-30] MEDS ORDERED: GEODON IM ONE ×2 (18:29→18:34)
[2018-10-01] MEDS ORDERED: ATIVAN PO ONE (08:44)
--- NOTE | 2018-10-01 14:19 | Consultation ---
History of Present Illness - Reason for Consult Consult date: 10/01/18 Reason for consult: Initial Psychiatric Evaluation - Chief Complaint Chief complaint: " I'm here to check up on my medication." - History of Present Psychiatric Illness Patient is a 48-year-old white male with a PMH of hypertension. He has a PPHx of substance abuse, anxiety disorder, and paranoid schizophrenia. Patient is known to provider. Patient has had several recent admissions to the emergency room related to substance abuse and psychosis. Patient was last discharged from [facility] on 09/20/18. Today the patient is cooperative but anxious during the assessment. He is very fidgety. Patient's mood is labile with tangential thought process. He appears paranoid. He states " a man threatened everyone in the house. I told him to get his shit and leave." Patient reports that he stopped taking Seroquel two days ago. Although patient has poor insight and judgment he is requesting to go home. Patient denies SI/HI's, A/VH's, and delusions. Current Psychiatric Medications: Seroquel 300mg po QHS, and Vistaril 25mg po T ID. Past Psychiatric History: Schizophrenia (2018); Multiple inpatient psychiatric hospitalizations ( [facility], [facility]); Outpatient Psychiatrist- unknown; no previous suicide attempts. Alcohol/ Drug Abuse History: Methamphetamine - 1/2 gram- " every other day", method- " I eat it"; last use- "2 days ago"; first use- " I was 13 years old." UDS positive for amphetamines. Abuse/Trauma History: Patient denies sexual, physical, and mental abuse. Social History: 10th grade- highest level of education; unemployed; SSI/appeal; lives with mother in [place], [place]; 2 children ( 1 son and 1 daughter); single. Family Hx of Psychiatric Illness and Substance Abuse: Mother- " cocaine"; Father- " everything" Medications and Allergies Allergies Allergy/AdvReac Type Severity Reaction Status Date / Time amoxicillin Allergy Anaphylaxis Verified 09/13/18 16:23 Penicillins Allergy Anaphylaxis Verified 09/13/18 16:23 Home Medications Medication Instructions Recorded Confirmed Last Taken Type Ibuprofen [Ibu] 800 mg PO TID PRN 08/14/18 09/30/18 Unknown History Lisinopril [Zestril] 10 mg PO DAILY #30 tablet 08/25/18 09/30/18 Unknown Rx Esomeprazole Magnesium [NexIUM] 40 mg PO QDAY #30 capsule. 08/29/18 09/30/18 Unknown Rx QUEtiapine [SEROquel] 200 mg PO HS #30 tablet 08/29/18 09/30/18 Unknown Rx Sertraline [Zoloft] 25 mg PO QDAY #30 tablet 08/29/18 09/30/18 Unknown Rx hydrOXYzine PAMOATE [Vistaril] 25 mg PO TID #30 capsule 08/29/18 09/30/18 Unknown Rx levETIRAcetam [Keppra] 500 mg PO BID #60 tablet 09/18/18 09/30/18 Unknown Rx Active Meds: Active Medications Quetiapine Fumarate (Seroquel) 200 mg PO QHS RAYMOND Last Admin: 09/30/18 23:04 Dose: 200 mg Documented by: Mental Status Exam - Vital signs Last Vital Signs Temp 98.0 F 10/01/18 09:04 Pulse 73 10/01/18 08:52 Resp 13 10/01/18 09:04 BP 132/74 10/01/18 08:52 Pulse Ox 96 10/01/18 08:52 - Exam Narrative exam: Mental Status Exam Appearance: calm, hospital gown Behavior: regular eye contact Speech: regular rate and tone Mood: "great" ;anxious Affect: incongruent Thought Process: circumstantial, tangential Thought Content: denies SI/HI's and AVH's ; appears paranoid Motor Activity: ambulatory; fidgety Cognition: A/O x 3 Insight: poor Judgment: poor Results Result Diagrams: 09/30/18 06:49 09/30/18 06:49 All other labs normal. Assessment and Plan Assessment and plan: Impression: PPHx of Schizophrenia. Substance Use DO (amphetamines). Today the patient is cooperative but anxious during the assessment. Patient is very fidgety. He denies SI/HI's, A/VH's, and delusions. He appears paranoid throughout the assessment. UDS positive for amphetamines. DDx: r/o Substance Induced Psychosis Recommendation/Plan: 1. Continue 1013. 2. Gather collateral information to determine proper disposition. 3. Restart Seroquel 300mg po QHS mood/psychosis. Discussed possible metabolic side effects of Seroquel with patient. Vistaril 50mg po TID anxiety. Discussed anti-cholinergic side effects. 4. Discussed the importance to abstain from recreational drug use and alcohol consumption (etoh). Disposition: Will refer to inpatient psychiatric services. Will staff with Dr. Emmanuelle Lopez.
[2018-10-01] MEDS ORDERED: HABITROL TD SCH (20:00)
[2018-10-01] MEDS: VISTARIL PO SCH (21:37)
[2018-10-02 04:22] VITALS: BP 102/56
--- NOTE | 2018-10-02 08:11 | Progress Note ---
Subjective - Reason for Consult Consult date: 10/02/18 Reason for consult: Psychiatry Follow-up - Chief Complaint Chief complaint: "I need my medication checked" 48-year-old white male presented to the ER for bizarre behavior. This patient is known to me. Today the patient is anxious and disorganized during the assessment. His answers to question were not logical. The patient looks around and pause throughout the interview, possibly responding to some type of stimuli. He denies SI/HI's and AVH's. No indications of side effects of his medications. Mental Status Exam - Vital signs Last Vital Signs Temp 98.3 F 10/02/18 00:00 Pulse 62 10/02/18 00:00 Resp 18 10/02/18 00:00 BP 102/56 10/02/18 00:00 Pulse Ox 97 10/02/18 00:00 - Exam Narrative exam: MSE: Appearance: calm, hospital gown Behavior: regular eye contact Speech: regular rate and tone Mood: "okay" Affect: flat Thought Process: tangential Thought Content: denies SI/HI's and AVH's, paranoia Motor Activity: ambulatory; fidgety Cognition: A/O x 3 Insight: poor Judgment: poor Assessment and Plan Impression: Unspecified Psychosis. Substance Use DO (amphetamines). Hx of Alcohol Use DO. Unspecified Anxiety DO. Today the patient is anxious during the assessment. DDx: Substance Induced Psychosis Recommendation/Plan: Continue 1013, Seroquel 300 mg PO HS for psychosis, and Vistaril 50 mg PO TID for anxiety. Discussed possible metabolic side effects of Seroquel with the patient. Dispo: The patient was accepted at [facility] for inpatient psy services pending transport time. Will staff with Dr. Sagastume.
[2018-10-02] MEDS: VISTARIL PO SCH (08:30)
== END 2018-10-02 11:10 ==
LOC: EEVIPCON 05:56 → ED 05:56
DX: F23 Brief psychotic disorder (principal); F20.0 Paranoid schizophrenia; F15.10 Other stimulant abuse, uncomplicated; F17.200 Nicotine dependence, unspecified, uncomplicated; I10 Essential (primary) hypertension; Z90.89 Acquired absence of other organs; Z88.0 Allergy status to penicillin; Z88.1 Allergy status to other antibiotic agents
CPT/HCPCS: 36415; 80048; 80307; 81001; 85025; 93005; 93010; 96372; 99285; G0480; J3486; 80320; Q0177

== ENCOUNTER 2018-11-06 15:31 | Emergency (ER) | payer SELFPAY ==
--- NOTE | 2018-11-06 16:51 | Emergency Department Report ---
Chief Complaint: Anxiety Stated Complaint: ANXIETY ATTACK Time Seen by Provider: 11/06/18 16:47 - HPI History of Present Illness: pt states he has anxiety increased stress, had disagreement with his mother pt takes trazadone, risperdal, haldol pt denies any SI/HI no visual or auditory hallucinations hx of PTSD, anxiety MSE screening note: Focused history and physical exam performed. ED Disposition for MSE Condition: Stable
== END 2018-11-06 18:30 | disposition left against medical advice (07) ==
LOC: ED 15:31

== ENCOUNTER 2018-11-11 00:27 | Emergency (ER) | payer OTHER ==
[2018-11-11] MEDS ORDERED: KEPPRA 1,000 MG/NS 0.75% 100ML 1,000 MG/100 ML BAG IV ONE (04:19)
--- NOTE | 2018-11-11 04:54 | XRay Report ---
PROCEDURE: XR CHEST 1V AP TECHNIQUE: Chest radiograph single view. HISTORY: Chest Pain COMPARISONS: August 29, 2018 . FINDINGS: Heart: Normal. Mediastinum/Vessels: Normal. Lungs/Pleural space: The lungs are clear and expanded. There are no infiltrates, effusions or pneumo thoraces.. Bony thorax: No acute osseous abnormality. Life support devices: None. IMPRESSION: Heart size is normal.. There are no infiltrates, effusions or pneumothoraces. This document is electronically signed by Jv Britt MD., November 11 2018 04:51:47 AM ET
[2018-11-11] MEDS ORDERED: KEPPRA PO ONE (05:59)
[2018-11-11] MEDS ORDERED: NORVASC PO ONE (06:07)
--- NOTE | 2018-11-11 06:07 | Emergency Department Report ---
ED General Adult HPI - General Chief complaint: Medical Clearance Stated complaint: MED REFILL Time Seen by Provider: 11/11/18 06:06 Source: patient, EMS Mode of arrival: Ambulatory Limitations: No Limitations - History of Present Illness Initial comments: Is a 48-year-old man who is essentially admitting to homelessness. He admits to having his blood pressure medicine but not taking it. He has not had a recent seizure. He states he is out of his seizure medicine. He states he would like to go to a psychiatric hospital. However he denies hallucinations, homicidal or suicidal ideation. He does admit that he would like to go to a f[facility] as well. He does not have any active complaints. He was found to have hypertension. -: days(s) Location: chest (patient nonchalantly mentioned that he had some chest pain. He is not complaining of that now. He doesn't know how long it lasted. He can't be at all specific about this complaint.) Radiation: non-radiation Quality: other (did not describe) Consistency: now resolved Improves with: none Worsens with: none Associated Symptoms: denies other symptoms - Related Data Home Medications Medication Instructions Recorded Confirmed Last Taken Ibuprofen [Ibu] 800 mg PO TID PRN 08/14/18 11/07/18 Unknown buPROPion SR [Wellbutrin SR] 150 mg PO DAILY 11/07/18 11/07/18 Unknown Previous Rx's Medication Instructions Recorded Last Taken Type Lisinopril [Zestril] 10 mg PO DAILY #30 tablet 08/25/18 Unknown Rx Esomeprazole Magnesium [NexIUM] 40 mg PO QDAY #30 capsule. 08/29/18 Unknown Rx Haloperidol [Haldol] 5 mg PO BID #60 tablet 11/11/18 Unknown Rx amLODIPine [Norvasc] 5 mg PO DAILY #30 tab 11/11/18 Unknown Rx hydrOXYzine PAMOATE [Vistaril] 50 mg PO BID #60 capsule 11/11/18 Unknown Rx levETIRAcetam [Keppra] 500 mg PO BID #60 tablet 11/11/18 Unknown Rx Allergies Allergy/AdvReac Type Severity Reaction Status Date / Time amoxicillin Allergy Anaphylaxis Verified 09/13/18 16:23 Penicillins Allergy Anaphylaxis Verified 09/13/18 16:23 ED Review of Systems ROS: Stated complaint: MED REFILL Other details as noted in HPI Constitutional: denies: chills, fever Eyes: denies: eye pain, eye discharge, vision change ENT: denies: ear pain, throat pain Respiratory: denies: cough, shortness of breath, wheezing Cardiovascular: chest pain. denies: palpitations Endocrine: no symptoms reported Gastrointestinal: denies: abdominal pain, nausea, diarrhea Genitourinary: denies: urgency, dysuria Musculoskeletal: denies: back pain, joint swelling, arthralgia Skin: denies: rash, lesions Neurological: denies: headache, weakness, paresthesias Psychiatric: denies: anxiety, depression Hematological/Lymphatic: denies: easy bleeding, easy bruising ED Past Medical Hx - Past Medical History Previous Medical History?: Yes Hx Hypertension: Yes Hx CVA: No Hx Heart Attack/AMI: No Hx Congestive Heart Failure: No Hx Diabetes: No Hx Deep Vein Thrombosis: No Hx Pulmonary Embolism: No Hx GERD: No Hx Liver Disease: No Hx Renal Disease: No Hx Sickle Cell Disease: No Hx Arthritis: No Hx Headaches / Migraines: No Hx Seizures: Yes Hx Kidney Stones: No Hx Psychiatric Treatment: Yes (anxiety, substance abuse, Paranoid schizo) Hx Asthma: No Hx COPD: No Hx Tuberculosis: No Hx Dementia: No Hx HIV: No Additional medical history: L shoulder - Surgical History Past Surgical History?: Yes Hx Coronary Stent: No Hx Open Heart Surgery: No Hx Pacemaker: No Hx Internal Defibrillator: No Hx Cholecystectomy: No Hx Appendectomy: Yes Hx Breast Surgery: No Additional Surgical History: LEFT LEG SURGERY - Social History Smoking Status: Current Every Day Smoker Substance Use Type: Alcohol, Methamphetamines, Other - Medications Home Medications: Home Medications Medication Instructions Recorded Confirmed Last Taken Type Ibuprofen [Ibu] 800 mg PO TID PRN 08/14/18 11/07/18 Unknown History Lisinopril [Zestril] 10 mg PO DAILY #30 tablet 08/25/18 11/07/18 Unknown Rx Esomeprazole Magnesium [NexIUM] 40 mg PO QDAY #30 capsule. 08/29/18 11/07/18 Unknown Rx buPROPion SR [Wellbutrin SR] 150 mg PO DAILY 11/07/18 11/07/18 Unknown History Haloperidol [Haldol] 5 mg PO BID #60 tablet 11/11/18 Unknown Rx amLODIPine [Norvasc] 5 mg PO DAILY #30 tab 11/11/18 Unknown Rx hydrOXYzine PAMOATE [Vistaril] 50 mg PO BID #60 capsule 11/11/18 Unknown Rx levETIRAcetam [Keppra] 500 mg PO BID #60 tablet 11/11/18 Unknown Rx ED Physical Exam - General Limitations: No Limitations General appearance: alert, in no apparent distress - Head Head exam: Present: atraumatic, normocephalic - Eye Eye exam: Present: normal appearance. Absent: scleral icterus - ENT ENT exam: Present: mucous membranes moist - Neck Neck exam: Present: normal inspection. Absent: tenderness, meningismus - Respiratory Respiratory exam: Present: normal lung sounds bilaterally. Absent: respiratory distress - Cardiovascular Cardiovascular Exam: Present: regular rate, normal rhythm. Absent: systolic murmur, diastolic murmur, rubs, gallop - GI/Abdominal GI/Abdominal exam: Present: soft, normal bowel sounds. Absent: distended, tenderness, guarding, rebound, rigid - Rectal Rectal exam: Present: deferred - Extremities Exam Extremities exam: Present: normal inspection - Back Exam Back exam: Present: normal inspection - Neurological Exam Neurological exam: Present: alert, oriented X3, CN II-XII intact. Absent: motor sensory deficit - Psychiatric Psychiatric exam: Present: normal mood, flat affect - Skin Skin exam: Present: warm, dry, intact, normal color. Absent: rash ED Course Vital Signs 11/11/18 11/11/18 11/11/18 01:07 03:02 07:01 Temperature 98.0 F 98.0 F Pulse Rate 105 H 107 H Respiratory 18 18 20 Rate Blood Pressure 172/111 172/111 Blood Pressure [Right] O2 Sat by Pulse 99 98 98 Oximetry 11/11/18 08:42 Temperature 98.7 F Pulse Rate 73 Respiratory 16 Rate Blood Pressure Blood Pressure 138/95 [Right] O2 Sat by Pulse 100 Oximetry ED Medical Decision Making - Lab Data Result diagrams: 11/11/18 09:16 11/11/18 04:00 Laboratory Results - last 24 hr 11/11/18 06:38 Troponin T < 0.010 Laboratory Results - last 24 hr 11/11/18 11/11/18 11/11/18 04:00 06:38 09:16 WBC 12.3 H RBC 4.62 Hgb 14.5 Hct 42.3 MCV 92 MCH 32 MCHC 34 RDW 13.7 Plt Count 370 Lymph % (Auto) 19.9 Brantley % (Auto) 5.9 Eos % (Auto) 0.7 Baso % (Auto) 1.0 Lymph # 2.4 Brantley # 0.7 Eos # 0.1 Baso # 0.1 Seg Neutrophils % 72.5 H Seg Neutrophils # 8.9 H Sodium 138 Potassium 4.2 Chloride 102.9 Carbon Dioxide 17 L D Anion Gap 22 BUN 13 Creatinine 1.0 Estimated GFR > 60 BUN/Creatinine Ratio 13 Glucose 95 Calcium 9.3 Troponin T < 0.010 11/11/18 09:16 WBC RBC Hgb Hct MCV MCH MCHC RDW Plt Count Lymph % (Auto) Brantley % (Auto) Eos % (Auto) Baso % (Auto) Lymph # Brantley # Eos # Baso # Seg Neutrophils % Seg Neutrophils # Sodium Potassium Chloride Carbon Dioxide Anion Gap BUN Creatinine Estimated GFR BUN/Creatinine Ratio Glucose Calcium Troponin T < 0.010 - Medical Decision Making I believe the patient's low CO2 as I elevated anion gap probably related to elevation ketosis. The patient was fed. I do not think he needs to be admitted at this time. Discussed this case with therapeutic case manager. The patient has repeated presentations which are similar. He has had low CO2s in the past. He will be referred to outpatient services. Critical care attestation.: If time is entered above; I have spent that time in minutes in the direct care of this critically ill patient, excluding procedure time. ED Disposition Clinical Impression: Homelessness, History of substance abuse Schizophrenia Qualifiers: Schizophrenia type: other Qualified Code(s): F20.89 - Other schizophrenia Hypertension Qualifiers: Hypertension type: unspecified Qualified Code(s): I10 - Essential (primary) hypertension Disposition: - TO HOME OR SELFCARE Is pt being admited?: No Does the pt Need Aspirin: No Condition: Stable Instructions: Schizophrenia (ED), Hypertension (ED) Additional Instructions: Medication as directed. Follow up with [facility] and [facility]. Return any acute change or problem as needed. Prescriptions: Haloperidol [Haldol] 5 mg PO BID #60 tablet levETIRAcetam [Keppra] 500 mg PO BID #60 tablet amLODIPine [Norvasc] 5 mg PO DAILY #30 tab hydrOXYzine PAMOATE [Vistaril] 50 mg PO BID #60 capsule Referrals: [facility] [Outside] - 3-5 Days [facility] [Outside] - 3-5 Days DANICA CALDERON MD [Primary Care Provider] - 3-5 Days [facility] [Provider Group] - 3-5 Days Time of Disposition: 10:21
[2018-11-11] MEDS ORDERED: GEODON PO ONE (06:57)
[2018-11-11 09:25] VITALS: BP 138/95
[2018-11-11 09:31] LABS: BUN/Creatinine Ratio 13; Blood Urea Nitrogen 13 mg/dL (9-20); Calcium 9.3 mg/dL (8.4-10.2); Hemolysis Index 56
[2018-11-11 09:36] LABS: Basophils # (Auto) 0.1 K/mm3 (0.0-0.1); Eosinophils # (Auto) 0.1 K/mm3 (0.0-0.4); Eosinophils % (Auto) 0.7 % (0.0-4.3); Hematocrit 42.3 % (35.5-45.6); Hemoglobin 14.5 gm/dl (11.8-15.2); Lymphocytes # (Auto) 2.4 K/mm3 (1.2-5.4); Lymphocytes % (Auto) 19.9 % (13.4-35.0); Mean Corpuscular HGB Conc 34 % (32-34); Mean Corpuscular Volume 92 fl (84-94); Monocytes # (Auto) 0.7 K/mm3 (0.0-0.8); Monocytes % (Auto) 5.9 % (0.0-7.3); Platelet Count 370 K/mm3 (140-440); Red Blood Count 4.62 M/mm3 (3.65-5.03); Red Cell Distribution Width 13.7 % (13.2-15.2)
== END 2018-11-11 10:30 | disposition home or self-care (01) ==
LOC: ED 00:27
DX: R56.9 Unspecified convulsions (principal); F41.9 Anxiety disorder, unspecified; I10 Essential (primary) hypertension; F20.9 Schizophrenia, unspecified; F17.200 Nicotine dependence, unspecified, uncomplicated; F15.10 Other stimulant abuse, uncomplicated; Z59.0 Homelessness; Z88.1 Allergy status to other antibiotic agents; Z88.0 Allergy status to penicillin
CPT/HCPCS: 36415; 71045; 80048; 84484; 85025; 93005; 93010; 96365; 99285; J1953

== ENCOUNTER 2019-01-14 14:30 | Emergency (ER) | payer OTHER ==
--- NOTE | 2019-01-14 14:39 | Emergency Department Report ---
Blank Doc - Documentation Documentation: This is a 48-year-old male that presents with psych behavior. Mother stated t hat patient has been acting abnormal and running down the streets and speaking about taxes. Patient denies any SI/HI. This initial assessment/diagnostic orders/clinical plan/treatment(s) is/are hurtado bject to change based on patient's health status, clinical progression and re- assessment by fellow clinical providers in the ED. Further treatment and workup at subsequent clinical providers discretion. Patient/guardians urged not to elope from the ED as their condition may be serious if not clinically assessed and managed. Initial orders include: 1- Patient sent to MAIN ED for further evaluation and treatment 2- irrigation equipment mechanic was notified to have patient be brought back JETHRO. 3- RN was notified to keep patient as close range and observation until room available
[2019-01-14 15:01] LABS: Basophils % (Auto) 0.4 % (0.0-1.8); Eosinophils % (Auto) 0.5 % (0.0-4.3); Hematocrit 47.6 % (35.5-45.6); Hemoglobin 16.7 gm/dl (11.8-15.2); Lymphocytes # (Auto) 1.3 K/mm3 (1.2-5.4); Lymphocytes % (Auto) 13.9 % (13.4-35.0); Mean Corpuscular HGB Conc 35 % (32-34); Mean Corpuscular Volume 94 fl (84-94); Monocytes # (Auto) 0.8 K/mm3 (0.0-0.8); Monocytes % (Auto) 8.9 % (0.0-7.3); Platelet Count 362 K/mm3 (140-440); Red Blood Count 5.07 M/mm3 (3.65-5.03); Red Cell Distribution Width 15.7 % (13.2-15.2)
[2019-01-14 15:13] LABS: BUN/Creatinine Ratio 16; Blood Urea Nitrogen 18 mg/dL (9-20); Calcium 9.5 mg/dL (8.4-10.2); Hemolysis Index 6
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
[2019-01-14 17:55] LABS: Bilirubin,Urine NEG (Negative); Blood,Urine NEG (Negative); Cocaine Screen,Urine PRESUMPTIVE NEGATIVE; Color,Urine Yellow (Yellow); Methadone Screen,Urine PRESUMPTIVE NEGATIVE; Opiate Screen,Urine PRESUMPTIVE NEGATIVE; Protein,Urine <15 mg/dL mg/dL (Negative); Sperm,Urine 3+ /HPF (NP); Urobilinogen,Urine < 2.0 mg/dL (<2.0)
[2019-01-14 18:06] LABS: Amphetamine Screen,Urine PRESUMPTIVE POSITIVE; Benzodiazepines Screen,Urine PRESUMPTIVE POSITIVE; Cannabinoid Screen,Urine PRESUMPTIVE POSITIVE
[2019-01-15] MEDS: NORVASC PO SCH ×2 (02:48→10:17)
--- NOTE | 2019-01-15 08:59 | Consultation ---
History of Present Illness - Reason for Consult Consult date: 01/15/19 Reason for consult: Mental Health Evaluation Requesting physician: MARIANO RAMÍREZ III - Chief Complaint Chief complaint: "i didn't do anything" - History of Present Psychiatric Illness 48 y.o. white male who presented to the ER for acute psychosis. This patient is known to me. Today the patient is anxious through the assessment. His speech was rapid and he could not logically explain why he was brought to the ER. Per the notes, the patient was running down the street threatening neighbors prior to his arrival to the ER. At this time, the patient isn't a good historian. No gestures of SI/HI's. Medications and Allergies Allergies Allergy/AdvReac Type Severity Reaction Status Date / Time amoxicillin Allergy Anaphylaxis Verified 01/14/19 14:31 Penicillins Allergy Anaphylaxis Verified 01/14/19 14:31 Home Medications Medication Instructions Recorded Confirmed Last Taken Type Ibuprofen [Ibu] 800 mg PO TID PRN 08/14/18 01/14/19 Unknown History Lisinopril [Zestril] 10 mg PO DAILY #30 tablet 08/25/18 01/14/19 Unknown Rx Esomeprazole Magnesium [NexIUM] 40 mg PO QDAY #30 capsule. 08/29/18 01/14/19 Unknown Rx buPROPion SR [Wellbutrin SR] 150 mg PO DAILY 11/07/18 01/14/19 Unknown History Haloperidol [Haldol] 5 mg PO BID #60 tablet 11/11/18 01/14/19 Unknown Rx amLODIPine [Norvasc] 5 mg PO DAILY #30 tab 11/11/18 01/14/19 Unknown Rx hydrOXYzine PAMOATE [Vistaril] 50 mg PO BID #60 capsule 11/11/18 01/14/19 Unknown Rx levETIRAcetam [Keppra] 500 mg PO BID #60 tablet 11/11/18 01/14/19 Unknown Rx Active Meds: Active Medications Amlodipine Besylate (Norvasc) 5 mg PO DAILY [facility] Last Admin: 01/15/19 02:48 Dose: Not Given Documented by: Levetiracetam (Keppra) 500 mg PO BID [facility] Past psychiatric history - Past Medical History Past Medical History: No medical history Past Surgical History: No surgical history - past Psychiatric treatment and history psychiatric treatment history: Several inpatient psy settings in the past. Denies a fam psy hx. - Social History Social history: lives with family Mental Status Exam - Vital signs Last Vital Signs Temp 97.5 F L 01/15/19 07:39 Pulse 89 01/15/19 07:39 Resp 18 01/15/19 07:39 BP 116/79 01/15/19 07:39 Pulse Ox 100 01/15/19 07:39 - Exam Narrative exam: MSE: Appearance: in hospital attire Behavior: regular eye contact Speech: rapid Mood: anxious Affect: congruent to mood Thought Process: tangential, disorganized Thought Content: no gestures of SI/HI's, paranoid Motor Activity: sitting up in bed Cognition: A/O x 3 Insight: poor Judgment: poor Results Result Diagrams: 01/14/19 14:46 01/14/19 14:46 Abnormal lab results 01/14/19 01/14/19 01/14/19 Range/Units 14:46 14:46 14:46 RBC 5.07 H (3.65-5.03) M/mm3 Hgb 16.7 H (11.8-15.2) gm/dl Hct 47.6 H (35.5-45.6) % MCH 33 H (28-32) pg MCHC 35 H (32-34) % RDW 15.7 H (13.2-15.2) % [place] % (Auto) 8.9 H (0.0-7.3) % Seg Neutrophils % 76.3 H (40.0-70.0) % Glucose 150 H (75-100) mg/dL Salicylates < 0.3 L (2.8-20.0) mg/dL Acetaminophen (10.0-30.0) ug/mL 01/14/19 Range/Units 14:46 RBC (3.65-5.03) M/mm3 Hgb (11.8-15.2) gm/dl Hct (35.5-45.6) % MCH (28-32) pg MCHC (32-34) % RDW (13.2-15.2) % [place] % (Auto) (0.0-7.3) % Seg Neutrophils % (40.0-70.0) % Glucose (75-100) mg/dL Salicylates (2.8-20.0) mg/dL Acetaminophen < 5.0 L (10.0-30.0) ug/mL All other labs normal. Assessment and Plan Assessment and plan: Impression: Unspecified Psychosis. Today the patient is anxious during the assessment. DDx: Substance Induced Psychosis Recommendation/Plan: Continue 1013 and start Seroquel 200 ,PO HS and Vistaril 25 mg PO BID for anxiety. Attempted to discuss possible metabolic side effects of Seroquel with the patient. Dispo: The patient was referred to inpatient psy services. Will staff with Dr Kvng Lopez,
[2019-01-15] MEDS: KEPPRA PO SCH ×2 (10:17→21:38)
[2019-01-15] MEDS: VISTARIL PO SCH ×2 (10:19→21:46)
[2019-01-16] MEDS: KEPPRA PO SCH ×2 (09:44→21:55)
[2019-01-16] MEDS: NORVASC PO SCH (09:44)
[2019-01-16] MEDS: VISTARIL PO SCH ×2 (09:44→21:52)
--- NOTE | 2019-01-16 14:43 | Progress Note ---
Subjective - Reason for Consult Consult date: 01/16/19 Reason for consult: Psychiatric Follow-up Evaluation - Chief Complaint Chief complaint: "I feel like I want to go home" Patient is a 48 y.o. white male who presented to the ER for acute psychosis. Thi s patient is known to me. Today the patient is anxious through the assessment. His speech was rapid and he could not logically explain why he was brought to the ER. Patient has had multiple hospitalizations within the last couple of months. He reports appropriate sleep and appetite. Tangential/disorganized thoughts and paranoid delusions are noted. He verbalizes after discharge he is frequently noncompliant with medication. He denies SI/HI's and A/VH's. UDS positive for marijuana, amphetamines, and benzodiazepines. Per staff patient is medication seeking. Requesting Xanax. Mental Status Exam - Vital signs Last Vital Signs Temp 97.5 F L 01/16/19 08:44 Pulse 88 01/16/19 09:44 Resp 18 01/16/19 08:44 BP 118/72 01/16/19 09:44 Pulse Ox 100 01/16/19 08:44 - Exam Narrative exam: Mental Status Exam Appearance: in hospital attire Behavior: regular eye contact Speech: rapid Mood: anxious " I'm ready to go home" Affect: congruent to mood Thought Process: tangential, disorganized Thought Content: no gestures of SI/HI's, A/VH's; paranoid delusions Motor Activity: sitting up in bed Cognition: A/O x 3 Insight: poor Judgment: poor Assessment and Plan Impression: Unspecified Psychosis. Today the patient is anxious during the assessment. Paranoid delusions noted- suspicious of provider. DDx: Substance Induced Psychosis Recommendation/Plan: 1. Continue 1013 2. Increase Seroquel 300 po HS and Vistaril 25 mg PO BID for anxiety. Attempted to discuss possible metabolic side effects of Seroquel with the patient. Disposition: The patient was referred to inpatient psychiatric services. Will staff with Dr. Kvng Lopez
[2019-01-16] MEDS ORDERED: XANAX PO ONE (17:09)
[2019-01-16] MEDS ORDERED: HABITROL TD ONE (17:09)
[2019-01-16] MEDS ORDERED: XANAX ONE (17:10)
[2019-01-17] MEDS: NORVASC PO SCH (10:07)
[2019-01-17] MEDS: VISTARIL PO SCH (10:10)
[2019-01-17] MEDS: KEPPRA PO SCH (10:10)
--- NOTE | 2019-01-17 17:53 | Progress Note ---
Subjective - Reason for Consult Consult date: 01/17/19 Reason for consult: follow up - Chief Complaint Chief complaint: "I used; I was paranoid." Patient is a 48 y.o. white male who presented to the ER for acute psychosis. He states he used which brought on the episode of paranoia. He states he sees a psychiatrist at the [facility] and has not been able to afford his medicines. He found a resource to pay for his meds within the past few days. His significant other, Alley, does not have any concerns about him returning home. They were since May, but are now back together. He denies SI/HI's and A/VH's. UDS positive for marijuana, amphetamines, and benzodiazepines. No withdrawal symptoms reported and no signs observed. He adamantly denies suicidal or homicidal ideation. He is connected with outpatient services and expresses intent to follow up. He denies hopeless or helpless ideation. Depression and anxiety are rated 3/10 with anxiety reported to be because he is in the ER. He wants to stop using substances. He states he does not use when he takes his meds daily. He now has a resource to pay for his medication. His signficant other confirmed this. He has the prescriptions at home. Mental Status Exam - Vital signs Last Vital Signs Temp 97.6 F 01/17/19 14:10 Pulse 71 01/17/19 14:10 Resp 18 01/17/19 14:10 BP 125/84 01/17/19 14:10 Pulse Ox 100 01/17/19 14:10 - Exam Narrative exam: Appearance: in hospital attire Behavior: regular eye contact Speech: regular rate and rhythm Mood: " I'm ready to go home" Affect: congruent to mood Thought Process: tangential, disorganized Thought Content: no gestures of SI/HI's, A/VH's; paranoia resolved Motor Activity: sitting up in bed Cognition: A/O x 3 Insight: fair Judgment: fair Assessment and Plan Impression: paranoia resolved and patient reports it was induced by methamphetamine. He was previously diagnosed with PTSD and has been off medication due to cost. He now has a resource to pay for him medications. There are no acute safety concerns. Family contact revealed no safety concerns. Recommendation/Plan: Rescind 1013 He declines need for prescriptions. safety plan done with international student counselor Disposition: The patient was referred to his outpatient provider, [facility]. Staffed with Dr. Kvng Lopez
[2019-01-17 20:13] VITALS: BP 98/73
== END 2019-01-17 20:14 | disposition home or self-care (01) ==
LOC: ED 14:30 → EEVIPCON 14:30 → ED 01-17 20:14
DX: F23 Brief psychotic disorder (principal); F41.9 Anxiety disorder, unspecified; I10 Essential (primary) hypertension; F17.200 Nicotine dependence, unspecified, uncomplicated; Z90.49 Acquired absence of other specified parts of digestive tract; Z88.0 Allergy status to penicillin; Z88.1 Allergy status to other antibiotic agents
CPT/HCPCS: 36415; 80048; 80307; 81001; 85025; 99284; G0480; 80320; Q0177

== ENCOUNTER 2019-01-24 18:45 | Emergency (ER) | payer OTHER ==
--- NOTE | 2019-01-24 18:51 | Emergency Department Report ---
Blank Doc - Documentation Documentation: 48 y o male presents to Ed stating that he is out of his medication and needs a refill states anxiety, alcohol use and marijuana uds ordered denies si/hi main evaluate
[2019-01-24 20:37] LABS: Benzodiazepines Screen,Urine PRESUMPTIVE NEGATIVE; Cannabinoid Screen,Urine PRESUMPTIVE NEGATIVE; Cocaine Screen,Urine PRESUMPTIVE NEGATIVE; Methadone Screen,Urine PRESUMPTIVE NEGATIVE; Opiate Screen,Urine PRESUMPTIVE NEGATIVE
--- NOTE | 2019-01-24 20:40 | Emergency Department Report ---
ED Psych HPI - General Chief Complaint: Anxiety Stated Complaint: REFILL MEDICATION Time Seen by Provider: 01/24/19 18:45 Source: patient Mode of arrival: Ambulatory - History of Present Illness Initial Comments: 48 yo male with a past medical history of, PTSD, anxiety, paranoid schizophrenia, and hypertension presents to the hospital because he is not taking his medication in the past 4-5 days because he cannot afford it. Upon medical record review patient was discharged discharge of several prescriptions on 01/14/2019. Patient states he still has these prescriptions but he has yet to fill the medication. He denies suicidal or homicidal ideation. His alcohol daily with last drink early this morning. No physical complaints reported. - Related Data Home Medications Medication Instructions Recorded Confirmed Last Taken Ibuprofen [Ibu] 800 mg PO TID PRN 08/14/18 01/14/19 Unknown buPROPion SR [Wellbutrin SR] 150 mg PO DAILY 11/07/18 01/14/19 Unknown Previous Rx's Medication Instructions Recorded Last Taken Type Lisinopril [Zestril] 10 mg PO DAILY #30 tablet 08/25/18 Unknown Rx Esomeprazole Magnesium [NexIUM] 40 mg PO QDAY #30 capsule. 08/29/18 Unknown Rx Haloperidol [Haldol] 5 mg PO BID #60 tablet 11/11/18 Unknown Rx amLODIPine [Norvasc] 5 mg PO DAILY #30 tab 11/11/18 Unknown Rx hydrOXYzine PAMOATE [Vistaril] 50 mg PO BID #60 capsule 11/11/18 Unknown Rx levETIRAcetam [Keppra] 500 mg PO BID #60 tablet 11/11/18 Unknown Rx Allergies Allergy/AdvReac Type Severity Reaction Status Date / Time amoxicillin Allergy Anaphylaxis Verified 01/24/19 18:49 Penicillins Allergy Anaphylaxis Verified 01/24/19 18:49 ED Review of Systems ROS: Stated complaint: REFILL MEDICATION Other details as noted in HPI Comment: All other systems reviewed and negative ED Past Medical Hx - Past Medical History Previous Medical History?: Yes Hx Hypertension: Yes Hx CVA: No Hx Heart Attack/AMI: No Hx Congestive Heart Failure: No Hx Diabetes: No Hx Deep Vein Thrombosis: No Hx Pulmonary Embolism: No Hx GERD: No Hx Liver Disease: No Hx Renal Disease: No Hx Sickle Cell Disease: No Hx Arthritis: No Hx Headaches / Migraines: No Hx Seizures: Yes Hx Kidney Stones: No Hx Psychiatric Treatment: Yes (anxiety, substance abuse, Paranoid schizo) Hx Asthma: No Hx COPD: No Hx Tuberculosis: No Hx Dementia: No Hx HIV: No Additional medical history: L shoulder - Surgical History Past Surgical History?: Yes Hx Coronary Stent: No Hx Open Heart Surgery: No Hx Pacemaker: No Hx Internal Defibrillator: No Hx Cholecystectomy: No Hx Appendectomy: Yes Hx Breast Surgery: No Additional Surgical History: LEFT LEG SURGERY - Social History Smoking Status: Current Every Day Smoker Substance Use Type: Alcohol - Medications Home Medications: Home Medications Medication Instructions Recorded Confirmed Last Taken Type Ibuprofen [Ibu] 800 mg PO TID PRN 08/14/18 01/14/19 Unknown History Lisinopril [Zestril] 10 mg PO DAILY #30 tablet 08/25/18 01/14/19 Unknown Rx Esomeprazole Magnesium [NexIUM] 40 mg PO QDAY #30 capsule. 08/29/18 01/14/19 Unknown Rx buPROPion SR [Wellbutrin SR] 150 mg PO DAILY 11/07/18 01/14/19 Unknown History Haloperidol [Haldol] 5 mg PO BID #60 tablet 11/11/18 01/14/19 Unknown Rx amLODIPine [Norvasc] 5 mg PO DAILY #30 tab 11/11/18 01/14/19 Unknown Rx hydrOXYzine PAMOATE [Vistaril] 50 mg PO BID #60 capsule 11/11/18 01/14/19 Unknown Rx levETIRAcetam [Keppra] 500 mg PO BID #60 tablet 11/11/18 01/14/19 Unknown Rx ED Physical Exam - General Limitations: No Limitations - Other Other exam information: General: No limitations, patient is alert in no acute distress Head exam: Atraumatic, normocephalic Eyes exam: Normal appearance ENT: Moist mucous membrane Neck exam: Normal inspection, full range of motion, no meningismus nontender Respiratory exam: Clear to auscultation bilateral, no wheezes, rales, crackles Cardiovascular: Normal rate and rhythm, normal heart sounds Abdomen: Soft, nondistended, and nontender, with normal bowel sounds, no rebound, or guarding Extremity: Full range of motion normal inspection no deformity Back: Normal Inspection, full range of motion, no tenderness Neurologic: Alert, oriented x3, cranial nerves intact, no motor or sensory deficit, no tremor Psychiatric: Normal affect, normal mood Skin: Warm, dry, intact ED Course Vital Signs 01/24/19 01/24/19 01/24/19 18:47 20:20 20:25 Temperature 98.6 F 97.8 F Pulse Rate 101 H 82 Respiratory 16 13 13 Rate Blood Pressure 135/103 133/98 [Left] O2 Sat by Pulse 100 100 100 Oximetry ED Medical Decision Making - Lab Data Lab Results 01/24/19 Range/Units 20:01 Urine Opiates Screen Presumptive negative Urine Methadone Screen Presumptive negative Ur Barbiturates Screen Presumptive negative Ur Phencyclidine Scrn Presumptive negative U Benzodiazepines Scrn Presumptive negative Urine Cocaine Screen Presumptive negative U Marijuana (THC) Screen Presumptive negative Amphetamines pending. - Medical Decision Making Patient encouraged to fill his medication. We are unable to give him the pills. Most his medications are fairly affordable (on the cost spectrum). Provided a good RX card to help make his medication even more affordable. Outpatient follow-up advised. Patient has been here multiple times in the past with amphetamine abuse and psychosis as well. - Differential Diagnosis anxiety, PTSD, schizophrenia, alcohol abuse, noncompliant Critical Care Time: No Critical care attestation.: If time is entered above; I have spent that time in minutes in the direct care of this critically ill patient, excluding procedure time. ED Disposition Clinical Impression: Anxiety, Alcohol abuse, Noncompliance with medication regimen, Methamphetamine abuse Disposition: - TO HOME OR SELFCARE Is pt being admited?: No Condition: Stable Instructions: Abuse of Alcohol (ED), Methamphetamine Abuse (ED), Anxiety (ED) Additional Instructions: Fill your recently prescribed medications. Follow up with your doctor or the clinic/doctor provided. Return if symptoms worsen as indicated by your discharge instruction. Use the good RX card provided to make your medication more affordable. Referrals: ROBBIE BARROS MD [Primary Care Provider] - 3-5 Days [facility] [Outside] - 3-5 Days Time of Disposition: 20:50
[2019-01-24 21:02] LABS: Amphetamine Screen,Urine PRESUMPTIVE POSITIVE
[2019-01-24 21:04] VITALS: BP 142/89
== END 2019-01-24 21:00 | disposition home or self-care (01) ==
LOC: ED 18:45
DX: F41.9 Anxiety disorder, unspecified (principal); F10.10 Alcohol abuse, uncomplicated; F15.10 Other stimulant abuse, uncomplicated; I10 Essential (primary) hypertension; F20.0 Paranoid schizophrenia; F17.200 Nicotine dependence, unspecified, uncomplicated; Z91.14 Patient's other noncompliance with medication regimen; Z90.89 Acquired absence of other organs; Z98.890 Other specified postprocedural states; Z88.1 Allergy status to other antibiotic agents; Z88.0 Allergy status to penicillin
CPT/HCPCS: 80307

== ENCOUNTER 2020-06-16 10:57 | Emergency (ER) | payer SELFPAY ==
[2020-06-16] MEDS ORDERED: HALOPERIDOL LACTATE 5 MG/1 ML INJ IM ONE (11:03)
[2020-06-16] MEDS ORDERED: SODIUM CHLORIDE 0.9% 1000 ML 1,000 ML IV ONE (11:03)
--- NOTE | 2020-06-16 11:44 | Emergency Department Report ---
<TERRY HAIDER - Last Filed: 06/16/20 18:28> ED Psych HPI - General Chief Complaint: Altered Mental Status Stated Complaint: DELIRUM Time Seen by Provider: 06/16/20 11:02 Source: patient Mode of arrival: Stretcher Limitations: Altered Mental Status - History of Present Illness Initial Comments: Chief complaint: "Altered mental status" HPI: This is a 21 this is a 50-year-old male with history of polysubstance abuse who presents with abnormal behavior. He was discovered at [employer] in the football field. He was undressing. He was acting erratically. Upon EMS arrival he was in the back of a police vehicle. He was concerned that the police were going to harm him. He was concerned that someone was going to shoot him. He is seen extremely paranoid and restless. Patient required chemical restraint with Haldol, Versed and Benadryl. He is drowsy at this time. However he states that he has sciatic pain. Patient has a history of methamphetamine use. Also has a history of alcohol and benzodiazepine use. According to EMR patient has history of paranoid schizophrenia as well as hypertension seizure disorder. Patient has had several hospitalizations at psychiatric facilities. MD Complaint: altered mental status -: This morning Associated Psychiatric Symptoms: other (erratic behavior) History of same: Yes Quality: constant Context: recent drug abuse - Related Data Home Medications Medication Instructions Recorded Confirmed Last Taken Ibuprofen [Ibu] 800 mg PO TID PRN 08/14/18 01/14/19 Unknown buPROPion SR [Wellbutrin SR] 150 mg PO DAILY 11/07/18 01/14/19 Unknown Previous Rx's Medication Instructions Recorded Last Taken Type Lisinopril [Zestril] 10 mg PO DAILY #30 tablet 08/25/18 Unknown Rx Esomeprazole Magnesium [NexIUM] 40 mg PO QDAY #30 capsule. 08/29/18 Unknown Rx amLODIPine 5 mg PO DAILY #30 tab 11/11/18 Unknown Rx hydrOXYzine PAMOATE [Vistaril] 50 mg PO BID #60 capsule 11/11/18 Unknown Rx levETIRAcetam [Keppra] 500 mg PO BID #60 tablet 11/11/18 Unknown Rx Hydroxyzine HCl [hydrOXYzine] 50 mg PO DAILY #30 tablet 06/17/20 Unknown Rx haloperidoL [Haldol] 5 mg PO BID #60 tablet 06/17/20 Unknown Rx Allergies Allergy/AdvReac Type Severity Reaction Status Date / Time amoxicillin Allergy Anaphylaxis Verified 01/24/19 18:49 Penicillins Allergy Anaphylaxis Verified 01/24/19 18:49 ED Review of Systems Comment: Unobtainable due to pts medical conditions (altered mental status) ED Past Medical Hx - Past Medical History Previous Medical History?: Yes Hx Hypertension: Yes Hx CVA: No Hx Heart Attack/AMI: No Hx Congestive Heart Failure: No Hx Diabetes: No Hx Deep Vein Thrombosis: No Hx Pulmonary Embolism: No Hx GERD: No Hx Liver Disease: No Hx Renal Disease: No Hx Sickle Cell Disease: No Hx Arthritis: No Hx Headaches / Migraines: No Hx Seizures: Yes Hx Kidney Stones: No Hx Psychiatric Treatment: Yes (anxiety, substance abuse, Paranoid schizo) Hx Asthma: No Hx COPD: No Hx Tuberculosis: No Hx Dementia: No Hx HIV: No Additional medical history: L shoulder - Surgical History Hx Coronary Stent: No Hx Open Heart Surgery: No Hx Pacemaker: No Hx Internal Defibrillator: No Hx Cholecystectomy: No Hx Appendectomy: Yes Hx Breast Surgery: No Additional Surgical History: LEFT LEG SURGERY - Social History Smoking Status: Current Every Day Smoker Substance Use Type: Alcohol, Tranquilizers, Methamphetamines - Medications Home Medications: Home Medications Medication Instructions Recorded Confirmed Last Taken Type Ibuprofen [Ibu] 800 mg PO TID PRN 08/14/18 01/14/19 Unknown History Lisinopril [Zestril] 10 mg PO DAILY #30 tablet 08/25/18 01/14/19 Unknown Rx Esomeprazole Magnesium [NexIUM] 40 mg PO QDAY #30 capsule. 08/29/18 01/14/19 Unknown Rx buPROPion SR [Wellbutrin SR] 150 mg PO DAILY 11/07/18 01/14/19 Unknown History amLODIPine 5 mg PO DAILY #30 tab 11/11/18 01/14/19 Unknown Rx hydrOXYzine PAMOATE [Vistaril] 50 mg PO BID #60 capsule 11/11/18 01/14/19 Unknown Rx levETIRAcetam [Keppra] 500 mg PO BID #60 tablet 11/11/18 01/14/19 Unknown Rx Hydroxyzine HCl [hydrOXYzine] 50 mg PO DAILY #30 tablet 06/17/20 Unknown Rx haloperidoL [Haldol] 5 mg PO BID #60 tablet 06/17/20 Unknown Rx ED Physical Exam - General Limitations: No Limitations, Altered Mental Status General appearance: lethargic, other (disheveled, dirty clothing) - Head Head exam: Present: atraumatic, normocephalic - Eye Eye exam: Present: normal appearance - ENT ENT exam: Present: mucous membranes moist - Neck Neck exam: Present: normal inspection, full ROM - Respiratory Respiratory exam: Present: normal lung sounds bilaterally. Absent: respiratory distress, wheezes, rales, rhonchi - Cardiovascular Cardiovascular Exam: Present: regular rate, normal rhythm, normal heart sounds. Absent: systolic murmur, diastolic murmur, rubs, gallop - GI/Abdominal GI/Abdominal exam: Present: soft, normal bowel sounds. Absent: distended, tenderness, guarding, rebound - Rectal Rectal exam: Present: deferred - Extremities Exam Extremities exam: Present: other (walking boot RLE) - Neurological Exam Neurological exam: Present: altered - Psychiatric Psychiatric exam: Present: flat affect, other (drowsy lethargic) - Skin Skin exam: Present: warm, dry, intact, normal color. Absent: rash ED Medical Decision Making - Lab Data Result diagrams: 06/16/20 12:01 06/16/20 12:01 - Medical Decision Making Upon reassessment after patient awoken from sedation, patient appears paranoid. He responding to internal stimuli. I agree with mental health rn otolaryngology who recommended 1013 involuntary hold protocol. He is medically clear for psychiatric care. I do suspect that patient has acute psychosis both due to paranoid schizophrenia and substance abuse. I have reviewed labs obtained. CBC chemistry serum toxicology all within normal limits. Urinalysis within normal limits. Urine tox screen positive for benzodiazepine and amphetamine. ED Disposition Clinical Impression: Acute psychosis, Paranoid schizophrenia, Polysubstance abuse Disposition: DC-01 TO HOME OR SELFCARE Is pt being admited?: No Does the pt Need Aspirin: No Condition: Stable Prescriptions: haloperidoL [Haldol] 5 mg PO BID #60 tablet Hydroxyzine HCl [hydrOXYzine] 50 mg PO DAILY #30 tablet Referrals: PRIMARY CARE, [Primary Care Provider] - 3-5 Days <FLORENCIO HAIDER - Last Filed: 06/17/20 14:22> ED Review of Systems ROS: Stated complaint: DELIRUM Other details as noted in HPI ED Course Vital Signs 06/16/20 06/16/20 06/16/20 17:51 18:00 18:16 Temperature Pulse Rate Respiratory 15 16 14 Rate Blood Pressure 121/85 121/85 106/79 Blood Pressure [Left] O2 Sat by Pulse 98 99 96 Oximetry 06/16/20 06/16/20 06/17/20 18:30 21:51 01:25 Temperature 98.3 F Pulse Rate 79 82 Respiratory 15 13 18 Rate Blood Pressure 106/79 106/79 Blood Pressure 148/93 [Left] O2 Sat by Pulse 95 99 Oximetry 06/17/20 12:50 Temperature 98 F Pulse Rate 100 H Respiratory 17 Rate Blood Pressure Blood Pressure 146/97 [Left] O2 Sat by Pulse 98 Oximetry - Reevaluation(s) Reevaluation #1: 06/17/20 11:28 I was asked to come and evaluate the patient. Patient states that he feels short of breath as though his throat is closing his tongue is swelling. Physical exam lungs are clear to auscultation. Patient does have some mild swelling to the distal tongue but no obstruction to his airway. I am able to visualize his full uvula which is midline and there is no tonsillar swelling. Patient is appears to be having allergic reaction. He did state that there is has happened before in the past. Patient given Benadryl Pepcid and Decadron and will reassess the patient Reevaluation #2: 06/17/20 14:21 Psychiatry team was able to see the patient. At this time the patient is calm and cooperative. Acute psychosis likely secondary to his amphetamine abuse. Their note is as follows Assessment and Plan (1)Acute Psychosis (2)Methamphetamine Use Disorder (3) Substance Induced Mood Disorder Current Visit: Yes Status: Acute RECOMMENDATIONS MEDICATIONS: D/c 1013 Script: Haldol 5mg po BID, Hydroxizine 50mg po daily Risks, benefits and alternatives of medications discussed with the patient, questions answered and consent obtained from patient. PSYCHOTHERAPY: Supportive psychotherapy provided MEDICAL: Per primary team DELIRIUM PRECAUTIONS: Please re-orient patient frequently, keep lights on during the day, and minimize benzodiazepines and opiates as these medications could worsen patient's confusion. 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 The patient understands that if thoughts of self harm or fear of endangerment are to arise she is to seek immediate assistance including the crisis hotline, 911/ER. The patient is to abstain from all illicit drug use. The rn otolaryngology is to further discuss the safety plan. The rn otolaryngology is to give the patient resources for outpatient psychiatry, cognitive behavioral therapy and drug rehabilitation programs. The patent is to follow up with outpatient psych, and primary in 7 to 14 days upon discharge. Will sign off. Thank you for the consult. Please contact with any questions and/or concerns ED Medical Decision Making - Lab Data Result diagrams: 06/16/20 12:01 06/16/20 12:01 Critical care attestation.: If time is entered above; I have spent that time in minutes in the direct care of this critically ill patient, excluding procedure time. ED Disposition Is pt being admited?: No Does the pt Need Aspirin: No Time of Disposition: 14:21
[2020-06-16 12:29] LABS: Basophils % (Auto) 0.2 % (0.0-1.8); Eosinophils % (Auto) 0.3 % (0.0-4.3); Hematocrit 37.6 % (35.5-45.6); Hemoglobin 13.1 gm/dl (11.8-15.2); Lymphocytes # (Auto) 1.2 K/mm3 (1.2-5.4); Lymphocytes % (Auto) 10.7 % (13.4-35.0); Mean Corpuscular HGB Conc 35 % (32-34); Mean Corpuscular Volume 98 fl (84-94); Platelet Count 294 K/mm3 (140-440); Red Blood Count 3.83 M/mm3 (3.65-5.03); Red Cell Distribution Width 15.4 % (13.2-15.2)
[2020-06-16 12:48] LABS: BUN/Creatinine Ratio 17; Blood Urea Nitrogen 17 mg/dL (9-20); Calcium 8.7 mg/dL (8.4-10.2); Hemolysis Index 12
[2020-06-16 18:01] LABS: Bilirubin,Urine NEG (Negative); Blood,Urine NEG (Negative); Color,Urine Yellow (Yellow); Mucus,Urine FEW /HPF; Protein,Urine <15 mg/dL mg/dL (Negative); RBC,Urine < 1.0 /HPF (0.0-6.0); Urobilinogen,Urine < 2.0 mg/dL (<2.0)
[2020-06-16 18:11] LABS: Cannabinoid Screen,Urine Negative; Cocaine Screen,Urine Negative; Methadone Screen,Urine Negative; Opiate Screen,Urine Negative
[2020-06-16 18:12] LABS: WBC,Urine < 1.0 /HPF (0.0-6.0)
[2020-06-16 19:03] LABS: Amphetamine Screen,Urine Positive; Benzodiazepines Screen,Urine Positive
--- NOTE | 2020-06-17 11:10 | Consultation ---
History of Present Illness - Reason for Consult Consult date: 06/17/20 Reason for consult: psychosis - History of Present Psychiatric Illness The patient's medical record was reviewed and the patient's progress was discussed with the nursing staff. The nurse states the patient has been calm and cooperative with no negative behaviors. Sriram Taveras is a 50y/o male who was admitted for psychosis. He was said to have been undressed at a football field with erratic behavior and paranoid. During my interview with the patient today, he is lying down. He is a/o x 3. He is calm and cooperative. The patient states, "I didn't tell no one to bring me here." He then says, "I don't know why they would." He says he has a history of "paranoid schizophrenia." He says he's "been off meds for a long time." He says he "wasn't able to get them." The patient denies SI/HI. He states, "no, never and I never told anybody that." He also denies ever having a suicidal attempt. T he patient denies ever being admitted into a psychiatric facility. He verbalize using "meth." The patient states "I've been talking to my girl. She is really expecting me back." He denies hallucinations of any kind. PAST PSYCHIATRIC HISTORY: Diagnoses: paranoid schizophrenia Suicide attempts or Self-harm behavior: denies Prior psychiatric hospitalizations: Denies Substance Abuse history: Meth Previous psychiatric medications tried: Outpatient treatment: Denies PAST MEDICAL HISTORY: None reported Family Psychiatric History: None reported or documented SOCIAL HISTORY Marital Status: Living Arrangements: with girlfriend Employment Status: Employed Access to guns/weapons: None reported Education: high school History of Abuse: Denies Legal History: Denies REVIEW OF SYSTEMS Constitutional: Negative for weight loss ENT: Negative for stridor Respiratory: Negative for cough or hemoptysis All other systems reviewed and are negative MENTAL STATUS EXAMINATION General Appearance and Behavior: Age appropriate, good hygiene, wearing appropriate clothes, good eye contact Cooperation: Participating/engaged Psychomotor Behavior: Psychomotor normal Mood: "I feel fine." Affect and affective range: congruent with stated mood Thought Process: goal directed Thought Content: denies hallucinations, or negative thoughts Speech: Normal rate and tone Intellectual Functioning: Average Suicidal Ideation: SI Homicidal Ideation: Denies HI Hallucinations: Denies Delusions: None elicited Insight and Judgment: Limited insight and judgment, Impaired Memory: Normal Orientation: Alert, oriented Assessment and Plan (1)Acute Psychosis (2)Methamphetamine Use Disorder (3) Substance Induced Mood Disorder Current Visit: Yes Status: Acute RECOMMENDATIONS MEDICATIONS: D/c 1013 Script: Haldol 5mg po BID, Hydroxizine 50mg po daily Risks, benefits and alternatives of medications discussed with the patient, questions answered and consent obtained from patient. PSYCHOTHERAPY: Supportive psychotherapy provided MEDICAL: Per primary team DELIRIUM PRECAUTIONS: Please re-orient patient frequently, keep lights on during the day, and minimize benzodiazepines and opiates as these medications could worsen patient's confusion. ELECTRICAL AND INSTRUMENT ENGINEER: Defer to primary DISPOSITION: Do not recommend acute inpatient psychiatric treatment at this time. The patient understands that if thoughts of self harm or fear of endangerment are to arise she is to seek immediate assistance including the crisis hotline, 911/ER. The patient is to abstain from all illicit drug use. The bucket turner is to further discuss the safety plan. The bucket turner is to give the patient resources for outpatient psychiatry, cognitive behavioral therapy and drug rehabilitation programs. The patent is to follow up with outpatient psych, and primary in 7 to 14 days upon discharge. Will sign off. Thank you for the consult. Please contact with any questions and/or concerns. Medications and Allergies Allergies Allergy/AdvReac Type Severity Reaction Status Date / Time amoxicillin Allergy Anaphylaxis Verified 01/24/19 18:49 Penicillins Allergy Anaphylaxis Verified 01/24/19 18:49 Home Medications Medication Instructions Recorded Confirmed Last Taken Type Ibuprofen [Ibu] 800 mg PO TID PRN 08/14/18 01/14/19 Unknown History Lisinopril [Zestril] 10 mg PO DAILY #30 tablet 08/25/18 01/14/19 Unknown Rx Esomeprazole Magnesium [NexIUM] 40 mg PO QDAY #30 capsule. 08/29/18 01/14/19 Unknown Rx buPROPion SR [Wellbutrin SR] 150 mg PO DAILY 11/07/18 01/14/19 Unknown History amLODIPine 5 mg PO DAILY #30 tab 11/11/18 01/14/19 Unknown Rx hydrOXYzine PAMOATE [Vistaril] 50 mg PO BID #60 capsule 11/11/18 01/14/19 Unknown Rx levETIRAcetam [Keppra] 500 mg PO BID #60 tablet 11/11/18 01/14/19 Unknown Rx Hydroxyzine HCl [hydrOXYzine] 50 mg PO DAILY #30 tablet 06/17/20 Unknown Rx haloperidoL [Haldol] 5 mg PO BID #60 tablet 06/17/20 Unknown Rx Mental Status Exam - Vital signs Last Vital Signs Temp 98.3 F 06/17/20 01:25 Pulse 82 06/17/20 01:25 Resp 18 06/17/20 01:25 BP 148/93 06/17/20 01:25 Pulse Ox 99 06/17/20 01:25 Results Result Diagrams: 06/16/20 12:01 06/16/20 12:01 Abnormal lab results 06/16/20 06/16/20 06/16/20 Range/Units 12:01 12:01 12:01 WBC 11.1 H (4.5-11.0) K/mm3 MCV 98 H (84-94) fl MCH 34 H (28-32) pg MCHC 35 H (32-34) % RDW 15.4 H (13.2-15.2) % Lymph % (Auto) 10.7 L (13.4-35.0) % [place] % (Auto) 9.0 H (0.0-7.3) % [place] # (Auto) 1.0 H (0.0-0.8) K/mm3 Seg Neutrophils % 79.8 H (40.0-70.0) % Seg Neutrophils # 8.9 H (1.8-7.7) K/mm3 Glucose 102 H (75-100) mg/dL Salicylates < 0.3 L (2.8-20.0) mg/dL Acetaminophen (10.0-30.0) ug/mL 06/16/20 Range/Units 12:01 WBC (4.5-11.0) K/mm3 MCV (84-94) fl MCH (28-32) pg MCHC (32-34) % RDW (13.2-15.2) % Lymph % (Auto) (13.4-35.0) % [place] % (Auto) (0.0-7.3) % [place] # (Auto) (0.0-0.8) K/mm3 Seg Neutrophils % (40.0-70.0) % Seg Neutrophils # (1.8-7.7) K/mm3 Glucose (75-100) mg/dL Salicylates (2.8-20.0) mg/dL Acetaminophen 5.0 L (10.0-30.0) ug/mL All other labs normal.
[2020-06-17] MEDS ORDERED: FAMOTIDINE 20 MG/2 ML INJ IV ONE (11:23)
[2020-06-17] MEDS ORDERED: diphenhydrAMINE 50 MG/ML VIAL IV ONE (11:23)
[2020-06-17] MEDS ORDERED: dexAMETHasone 20 MG/5 ML VIAL IV ONE (11:24)
[2020-06-17 12:52] VITALS: BP 146/97
== END 2020-06-17 15:30 | disposition home or self-care (01) ==
LOC: ED 10:57 → EEVIPCON 10:57 → ED 06-17 15:30
DX: F19.10 Other psychoactive substance abuse, uncomplicated (principal); F23 Brief psychotic disorder; F20.0 Paranoid schizophrenia; I10 Essential (primary) hypertension; G43.909 Migraine, unspecified, not intractable, without status migrainosus; F41.9 Anxiety disorder, unspecified; F17.200 Nicotine dependence, unspecified, uncomplicated; Z79.1 Long term (current) use of non-steroidal anti-inflammatories (NSAID); Z79.899 Other long term (current) drug therapy; Z88.0 Allergy status to penicillin; Z88.1 Allergy status to other antibiotic agents
CPT/HCPCS: 36415; 80048; 80307; 81001; 85025; 96361; 96372; 96374; 96375; 99285; J1100; J1200; J1630; J7030; 80320; G0480

== ENCOUNTER 2021-07-31 20:28 | Emergency (ER) | payer SELFPAY ==
[2021-07-31] MEDS ORDERED: ZIPRASIDONE MESYLATE 20 MG VIAL IM ONE ×2 (20:36→20:38)
--- NOTE | 2021-07-31 20:46 | Emergency Department Report ---
ED Psych HPI - General Stated Complaint: ETOH Time Seen by Provider: 07/31/21 20:36 - History of Present Illness Initial Comments: Patient presents by ambulance secondary to medical noncompliance. He has a history of psychiatric disease and has been noncompliant with medication. He states it is "been a minute since he took his medication." He admits that people are after him now. He is very paranoid. He does not want to have his back to the door. He is not suicidal homicidal. He is not hallucinating. He does not hear voices. He states that he just knows that people are after him. - Related Data Home Medications Medication Instructions Recorded Confirmed Last Taken Ibuprofen [Ibu] 800 mg PO TID PRN 08/14/18 01/14/19 Unknown buPROPion SR [Wellbutrin SR] 150 mg PO DAILY 11/07/18 01/14/19 Unknown Previous Rx's Medication Instructions Recorded Last Taken Type Lisinopril [Zestril] 10 mg PO DAILY #30 tablet 08/25/18 Unknown Rx Esomeprazole Magnesium [NexIUM] 40 mg PO QDAY #30 capsule. 08/29/18 Unknown Rx amLODIPine 5 mg PO DAILY #30 tab 11/11/18 Unknown Rx hydrOXYzine PAMOATE [Vistaril] 50 mg PO BID #60 capsule 11/11/18 Unknown Rx levETIRAcetam [Keppra] 500 mg PO BID #60 tablet 11/11/18 Unknown Rx Hydroxyzine HCl [hydrOXYzine] 50 mg PO DAILY #30 tablet 06/17/20 Unknown Rx haloperidoL [Haldol] 5 mg PO BID #60 tablet 06/17/20 Unknown Rx Allergies Allergy/AdvReac Type Severity Reaction Status Date / Time amoxicillin Allergy Anaphylaxis Verified 07/31/21 21:04 Penicillins Allergy Anaphylaxis Verified 07/31/21 21:04 ED Review of Systems ROS: Stated complaint: ETOH Other details as noted in HPI Comment: All other systems reviewed and negative Constitutional: denies: fever Eyes: denies: vision change ENT: denies: throat pain Respiratory: denies: cough Cardiovascular: denies: chest pain Endocrine: denies: unexplained weight loss Gastrointestinal: denies: abdominal pain Genitourinary: denies: dysuria Musculoskeletal: denies: back pain Skin: denies: rash Neurological: denies: headache Psychiatric: as per HPI Hematological/Lymphatic: denies: easy bruising ED Past Medical Hx - Past Medical History Hx Hypertension: Yes Hx CVA: No Hx Heart Attack/AMI: No Hx Congestive Heart Failure: No Hx Diabetes: No Hx Deep Vein Thrombosis: No Hx Pulmonary Embolism: No Hx GERD: No Hx Liver Disease: No Hx Renal Disease: No Hx Sickle Cell Disease: No Hx Arthritis: No Hx Headaches / Migraines: No Hx Seizures: Yes Hx Kidney Stones: No Hx Psychiatric Treatment: Yes (anxiety, substance abuse, Paranoid schizo) Hx Asthma: No Hx COPD: No Hx Tuberculosis: No Hx Dementia: No Hx HIV: No Additional medical history: L shoulder - Surgical History Hx Coronary Stent: No Hx Open Heart Surgery: No Hx Pacemaker: No Hx Internal Defibrillator: No Hx Cholecystectomy: No Hx Appendectomy: Yes Hx Breast Surgery: No Additional Surgical History: LEFT LEG SURGERY - Family History Family history: hypertension - Social History Smoking Status: Current Every Day Smoker Substance Use Type: Alcohol, Tranquilizers, Methamphetamines - Medications Home Medications: Home Medications Medication Instructions Recorded Confirmed Last Taken Type Ibuprofen [Ibu] 800 mg PO TID PRN 08/14/18 01/14/19 Unknown History Lisinopril [Zestril] 10 mg PO DAILY #30 tablet 08/25/18 01/14/19 Unknown Rx Esomeprazole Magnesium [NexIUM] 40 mg PO QDAY #30 capsule. 08/29/18 01/14/19 Unknown Rx buPROPion SR [Wellbutrin SR] 150 mg PO DAILY 11/07/18 01/14/19 Unknown History amLODIPine 5 mg PO DAILY #30 tab 11/11/18 01/14/19 Unknown Rx hydrOXYzine PAMOATE [Vistaril] 50 mg PO BID #60 capsule 11/11/18 01/14/19 Unknown Rx levETIRAcetam [Keppra] 500 mg PO BID #60 tablet 11/11/18 01/14/19 Unknown Rx Hydroxyzine HCl [hydrOXYzine] 50 mg PO DAILY #30 tablet 06/17/20 Unknown Rx haloperidoL [Haldol] 5 mg PO BID #60 tablet 06/17/20 Unknown Rx ED Physical Exam - General Limitations: No Limitations, Other (Pulse ox noted and normal) General appearance: alert, in no apparent distress - Head Head exam: Present: atraumatic, normocephalic, normal inspection - Eye Eye exam: Present: normal appearance, EOMI. Absent: scleral icterus - ENT ENT exam: Present: normal orophraynx, normal external ear exam - Neck Neck exam: Present: normal inspection. Absent: meningismus - Respiratory Respiratory exam: Present: normal lung sounds bilaterally. Absent: respiratory distress - Cardiovascular Cardiovascular Exam: Present: normal rhythm, tachycardia - GI/Abdominal GI/Abdominal exam: Present: soft. Absent: tenderness - Extremities Exam Extremities exam: Present: normal capillary refill. Absent: pedal edema - Back Exam Back exam: Absent: CVA tenderness (R), CVA tenderness (L) - Neurological Exam Neurological exam: Present: alert, oriented X3, CN II-XII intact, normal gait, reflexes normal. Absent: motor sensory deficit - Psychiatric Psychiatric exam: Present: agitated, other (Paranoid) - Skin Skin exam: Present: other (Diaphoretic) ED Course Vital Signs 07/31/21 21:05 Pulse Rate 115 H Respiratory 18 Rate Blood Pressure 158/111 [Left] O2 Sat by Pulse 99 Oximetry - Reevaluation(s) Reevaluation #1: 07/31/21 20:46 EMS was met upon arrival. Old records reviewed. Geodon ordered. Reevaluation #2: 07/31/21 22:30 Labs been reviewed. Patient is feeling much better after Geodon. He is calm and collected. He is no longer tachycardic or diaphoretic. Patient admits that he has not been taking medication. He is not suicidal or homicidal. ED Medical Decision Making - Lab Data Result diagrams: 07/31/21 20:54 07/31/21 20:54 Rhythm strip: Sinus tachycardia without ectopy per monitor observe 10 seconds. - Medical Decision Making Patient presents with medical noncompliance and paranoia. He admits that he has not been compliant with his psychiatric medication. After medication here, he is much more calm and sedate. He is no longer paranoid. He knows that the people that were supposedly chasing him or not actually chasing him. He is not suicidal homicidal. Is not responding to extraneous stimuli. He does not appear to be hallucinating. He does have a girlfriend who has medications for him and is coming to pick him up. Patient will contract for safety. He states that he will take his medication and stop abusing drugs. Critical Care Time: No Critical care attestation.: If time is entered above; I have spent that time in minutes in the direct care of this critically ill patient, excluding procedure time. ED Disposition Clinical Impression: Paranoia, Noncompliance Disposition: 01 HOME / SELF CARE / HOMELESS Is pt being admited?: No Condition: Stable Additional Instructions: Take your medications as prescribed. Do not stop taking them. Drink plenty of water. Return for problems. Follow-up with your regular doctor or the referral physician as directed. Referrals: JOSE R GIBBS MD [Primary Care Provider] - 3-5 Days MELODY HERNANDEZ MD [Staff Physician] - 3-5 Days
[2021-07-31 21:22] LABS: Hematocrit 46.5 % (35.5-45.6); Hemoglobin 15.2 gm/dl (11.8-15.2); Mean Corpuscular HGB Conc 33 % (32-34); Mean Corpuscular Volume 102 fl (84-94); Platelet Count 466 K/mm3 (140-440); Red Blood Count 4.58 M/mm3 (3.65-5.03); Red Cell Distribution Width 14.1 % (13.2-15.2)
[2021-07-31 21:41] LABS: Albumin 4.6 g/dL (3.9-5); Calcium 10.1 mg/dL (8.4-10.2)
[2021-07-31] MEDS ORDERED: KETOROLAC 30 MG/1 ML INJ IM ONE (22:25)
[2021-07-31 23:35] VITALS: BP 120/85
--- NOTE | 2021-08-03 10:07 | Electrocardiograph Report ---
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
== END 2021-08-01 00:32 | disposition home or self-care (01) ==
LOC: ED 20:28
DX: F60.0 Paranoid personality disorder (principal); F17.290 Nicotine dependence, other tobacco product, uncomplicated; I10 Essential (primary) hypertension; Z79.899 Other long term (current) drug therapy; Z90.49 Acquired absence of other specified parts of digestive tract; Z98.890 Other specified postprocedural states
CPT/HCPCS: 36415; 80053; 84443; 85027; 93005; 96372; 99283; J1885; J3486; 80320; G0480

== ENCOUNTER 2022-01-25 07:33 | Emergency (ER) | payer SELFPAY ==
[2022-01-25] MEDS ORDERED: ZIPRASIDONE MESYLATE 20 MG VIAL IM ONE (08:52)
[2022-01-25] MEDS ORDERED: diphenhydrAMINE 50 MG/ML VIAL IV ONE (08:55)
--- NOTE | 2022-01-25 10:44 | Consultation ---
History of Present Illness - Reason for Consult Consult date: 01/25/22 Reason for consult: mental health evaluation - History of Present Psychiatric Illness The patient is a51 year old male with history post traumatic stress disorder, paranoid schizophrenia, methamphetamine abuse and alcohol abuse. The patient was seen today. He presents with confusion and disorganized thought process. He reports that "voices are saying stupid things" PAST PSYCHIATRIC HISTORY: PAST MEDICAL HISTORY: None reported or document Family Psychiatric History: None reported or documented SOCIAL HISTORY REVIEW OF SYSTEMS MENTAL STATUS EXAMINATION Diagnoses: (1) Schizophrenia. Treatment Plan 1013 Continue home meds Haldol 5mg po BID PSYCHOTHERAPY: Supportive psychotherapy provided MEDICAL: Per primary team DELIRIUM PRECAUTIONS: Please re-orient patient frequently, keep lights on during the day, and minimize benzodiazepines and opiates as these medications could worsen patient's confusion. RN NEONATAL: Per medical team DISPOSITION: Recommend acute psychiatric inpatient treatment. Will follow. Thank you for the consult. Case staffed with Dr. Huston Medications and Allergies Medications and Allergies Allergies Allergy/AdvReac Type Severity Reaction Status Date / Time amoxicillin Allergy Anaphylaxis Verified 07/31/21 21:04 Penicillins Allergy Anaphylaxis Verified 07/31/21 21:04 Home Medications Medication Instructions Recorded Confirmed Last Taken Type Ibuprofen [Ibu] 800 mg PO TID PRN 08/14/18 01/14/19 Unknown History Lisinopril [Zestril] 10 mg PO DAILY #30 tablet 08/25/18 01/14/19 Unknown Rx Esomeprazole Magnesium [NexIUM] 40 mg PO QDAY #30 capsule. 08/29/18 01/14/19 Unknown Rx buPROPion SR [Wellbutrin SR] 150 mg PO DAILY 11/07/18 01/14/19 Unknown History amLODIPine 5 mg PO DAILY #30 tab 11/11/18 01/14/19 Unknown Rx hydrOXYzine PAMOATE [Vistaril] 50 mg PO BID #60 capsule 11/11/18 01/14/19 Unknown Rx levETIRAcetam [Keppra] 500 mg PO BID #60 tablet 11/11/18 01/14/19 Unknown Rx Hydroxyzine HCl [hydrOXYzine] 50 mg PO DAILY #30 tablet 06/17/20 Unknown Rx haloperidoL [Haldol] 5 mg PO BID #60 tablet 06/17/20 Unknown Rx Mental Status Exam - Vital signs Last Vital Signs Temp 98.6 F 01/25/22 09:44 Pulse 118 H 01/25/22 09:44 Resp 20 01/25/22 09:44 BP 149/102 01/25/22 09:44 Pulse Ox 99 01/25/22 09:44 Results All other labs normal.
[2022-01-25] MEDS ORDERED: buPROPion SR 150 MG TAB PO SCH (12:00)
--- NOTE | 2022-01-25 12:27 | Emergency Department Report ---
ED Psych HPI - General Chief Complaint: Psych Stated Complaint: MH EVAL Time Seen by Provider: 01/25/22 09:52 Source: patient Mode of arrival: Ambulatory - History of Present Illness Initial Comments: 51-year-old male with a history of PTSD, paranoid schizophrenia, methamphetamine abuse and alcohol use who presents today with auditory and visual hallucination that has been going on for 3 to 4 days progressively getting worse. Patient reports that he was hearing voices telling him to do "lots of stupid stuff". No other modifying or associated factors reported. - Related Data Home Medications Medication Instructions Recorded Confirmed Last Taken Ibuprofen [Ibu] 800 mg PO TID PRN 08/14/18 01/14/19 Unknown buPROPion SR [Wellbutrin SR] 150 mg PO DAILY 11/07/18 01/14/19 Unknown Previous Rx's Medication Instructions Recorded Last Taken Type Lisinopril [Zestril] 10 mg PO DAILY #30 tablet 08/25/18 Unknown Rx Esomeprazole Magnesium [NexIUM] 40 mg PO QDAY #30 capsule. 08/29/18 Unknown Rx amLODIPine 5 mg PO DAILY #30 tab 11/11/18 Unknown Rx hydrOXYzine PAMOATE [Vistaril] 50 mg PO BID #60 capsule 11/11/18 Unknown Rx levETIRAcetam [Keppra] 500 mg PO BID #60 tablet 11/11/18 Unknown Rx Hydroxyzine HCl [hydrOXYzine] 50 mg PO DAILY #30 tablet 06/17/20 Unknown Rx haloperidoL [Haldol] 5 mg PO BID #60 tablet 06/17/20 Unknown Rx Allergies Allergy/AdvReac Type Severity Reaction Status Date / Time amoxicillin Allergy Anaphylaxis Verified 07/31/21 21:04 Penicillins Allergy Anaphylaxis Verified 07/31/21 21:04 ED Review of Systems ROS: Stated complaint: MH EVAL Other details as noted in HPI Comment: All other systems reviewed and negative Neurological: other Psychiatric: depression, auditory hallucinations, visual hallucinations ED Past Medical Hx - Past Medical History Hx Hypertension: Yes Hx CVA: No Hx Heart Attack/AMI: No Hx Congestive Heart Failure: No Hx Diabetes: No Hx Deep Vein Thrombosis: No Hx Pulmonary Embolism: No Hx GERD: No Hx Liver Disease: No Hx Renal Disease: No Hx Sickle Cell Disease: No Hx Arthritis: No Hx Headaches / Migraines: No Hx Seizures: Yes Hx Kidney Stones: No Hx Psychiatric Treatment: Yes (anxiety, substance abuse, Paranoid schizo) Hx Asthma: No Hx COPD: No Hx Tuberculosis: No Hx Dementia: No Hx HIV: No Additional medical history: L shoulder - Surgical History Hx Coronary Stent: No Hx Open Heart Surgery: No Hx Pacemaker: No Hx Internal Defibrillator: No Hx Cholecystectomy: No Hx Appendectomy: Yes Hx Breast Surgery: No Additional Surgical History: LEFT LEG SURGERY - Social History Smoking Status: Current Every Day Smoker Substance Use Type: Alcohol, Tranquilizers, Methamphetamines - Medications Home Medications: Home Medications Medication Instructions Recorded Confirmed Last Taken Type Ibuprofen [Ibu] 800 mg PO TID PRN 08/14/18 01/14/19 Unknown History Lisinopril [Zestril] 10 mg PO DAILY #30 tablet 08/25/18 01/14/19 Unknown Rx Esomeprazole Magnesium [NexIUM] 40 mg PO QDAY #30 capsule. 08/29/18 01/14/19 Unknown Rx buPROPion SR [Wellbutrin SR] 150 mg PO DAILY 11/07/18 01/14/19 Unknown History amLODIPine 5 mg PO DAILY #30 tab 11/11/18 01/14/19 Unknown Rx hydrOXYzine PAMOATE [Vistaril] 50 mg PO BID #60 capsule 11/11/18 01/14/19 Unknown Rx levETIRAcetam [Keppra] 500 mg PO BID #60 tablet 11/11/18 01/14/19 Unknown Rx Hydroxyzine HCl [hydrOXYzine] 50 mg PO DAILY #30 tablet 06/17/20 Unknown Rx haloperidoL [Haldol] 5 mg PO BID #60 tablet 06/17/20 Unknown Rx ED Physical Exam - General Limitations: No Limitations General appearance: alert, in no apparent distress - ENT ENT exam: Present: normal exam, normal orophraynx, mucous membranes moist - Neck Neck exam: Present: normal inspection. Absent: tenderness - Respiratory Respiratory exam: Present: normal lung sounds bilaterally. Absent: respiratory distress, accessory muscle use - Cardiovascular Cardiovascular Exam: Present: regular rate, normal rhythm, normal heart sounds - GI/Abdominal GI/Abdominal exam: Present: soft, normal bowel sounds. Absent: distended, tenderness - Extremities Exam Extremities exam: Absent: pedal edema - Neurological Exam Neurological exam: Present: alert, oriented X3 - Psychiatric Psychiatric exam: Present: normal affect, flat affect - Skin Skin exam: Present: warm, normal color ED Course Vital Signs 01/25/22 01/25/22 01/25/22 07:38 09:44 20:31 Temperature 97.8 F 98.6 F 97.5 F L Pulse Rate 120 H 118 H 99 H Respiratory 16 20 18 Rate Blood Pressure 130/90 149/102 143/105 [Left] O2 Sat by Pulse 96 99 99 Oximetry 01/26/22 01/26/22 01/26/22 03:40 06:07 08:05 Temperature 98.9 F 97.8 F Pulse Rate 107 H 120 H Respiratory 18 18 Rate Blood Pressure 134/91 146/116 [Left] O2 Sat by Pulse 100 99 100 Oximetry - Reevaluation(s) Reevaluation #1: 01/25/22 12:21 Presents with visual and auditory hallucination in the patient with history of PTSD, panic schizophrenia, meth and alcohol abuse--we will go ahead and order routine psych work-up that include thyroid panel and illicit drug screening--I have patient evaluated by mental health for further evaluation and treatment after being cleared medically. Reevaluation #2: 01/25/22 12:22 Patient evaluated by psychiatrist and deemed patient to be 1013 for further evaluation and treatment. Reevaluation #3: 01/26/22 11:52 I saw this patient this morning and discuss the abnormal liver enzyme that is likely as a result of his alcohol abuse. He promised to cut back on his alcohol drinking. Pt is been followed by the psychiatry for disposition. Otherwise no other event at the moment. Reevaluation #4: 01/26/22 14:57 Pt seen by the psychiatrist and discharged home to continue his Haldol 10 mg daily. ED Medical Decision Making - Lab Data Result diagrams: 01/26/22 06:04 01/26/22 06:04 Critical care attestation.: If time is entered above; I have spent that time in minutes in the direct care of this critically ill patient, excluding procedure time. ED Disposition Clinical Impression: Auditory hallucination, Visual hallucination Disposition: 01 HOME / SELF CARE / HOMELESS Is pt being admited?: No Does the pt Need Aspirin: No Condition: Stable Additional Instructions: Professional and Agency Contacts To help [facility] (18/03) [place] Crisis Line: Suicide Prevention Line: Crisis Text Line: Text START to [phone] Emergency: 911 Outpatient COMMUNITY Behavioral Health Resources: [place]: [facility] [address], [place] [address] [place]: [facility] [address] [place] [address] Saturday thru Saturday - 8am - 5pm Call to schedule an assessment for mental health and substance abuse programs [facility] Address: [address] [place] [address] Saturday thru Saturday- 7am-2pm [facility] Address: [address] [place] [address] Saturday thrsaturday: 8:30AM-5PM Referrals: PRIMARY CARE, [Primary Care Provider] - 3-5 Days Time of Disposition: 14:59
[2022-01-25] MEDS ORDERED: HALOPERIDOL 5 MG TAB PO SCH (22:00)
[2022-01-26 01:40] LABS: Bacteria,Urine 4+ /HPF (Negative); Mucus,Urine 3+ /HPF
[2022-01-26 01:44] LABS: Amphetamine Screen,Urine PRESUMPTIVE POSITIVE; Benzodiazepines Screen,Urine PRESUMPTIVE POSITIVE; Cannabinoid Screen,Urine PRESUMPTIVE POSITIVE; Cocaine Screen,Urine PRESUMPTIVE POSITIVE; Methadone Screen,Urine PRESUMPTIVE NEGATIVE; Opiate Screen,Urine PRESUMPTIVE NEGATIVE
[2022-01-26 01:54] LABS: Bilirubin,Urine Negative (Negative); Blood,Urine Negative (Negative); Color,Urine Yellow (Yellow)
[2022-01-26 01:55] LABS: Urobilinogen,Urine < 2.0 mg/dL (<2.0)
[2022-01-26 06:23] LABS: Basophils % (Auto) 0.4 % (0.0-1.8); Eosinophils # (Auto) 0.2 K/mm3 (0.0-0.4); Eosinophils % (Auto) 1.4 % (0.0-4.3); Hematocrit 41.2 % (35.5-45.6); Hemoglobin 14.3 gm/dl (11.8-15.2); Lymphocytes # (Auto) 2.3 K/mm3 (1.2-5.4); Lymphocytes % (Auto) 20.3 % (13.4-35.0); Mean Corpuscular HGB Conc 35 % (32-34); Mean Corpuscular Volume 96 fl (84-94); Monocytes # (Auto) 1.4 K/mm3 (0.0-0.8); Monocytes % (Auto) 12.2 % (0.0-7.3); Platelet Count 286 K/mm3 (140-440); Red Blood Count 4.31 M/mm3 (3.65-5.03); Red Cell Distribution Width 14.6 % (13.2-15.2)
[2022-01-26 06:39] LABS: BUN/Creatinine Ratio 12; Blood Urea Nitrogen 14 mg/dL (9-20); Hemolysis Index 13
[2022-01-26 08:06] VITALS: BP 146/116
[2022-01-26] MEDS ORDERED: NON-FORMULARY EACH (Hydroxyzine Hcl [Hydroxyzine] 50 MG Tablet) PO SCH (10:00)
[2022-01-26] MEDS ORDERED: SULFAMETHOXAZOLE/TRIMETHOPRIM 800/160MG DS TAB PO SCH (13:00)
--- NOTE | 2022-01-26 13:18 | Progress Note ---
Subjective - Reason for Consult Consult date: 01/26/22 Reason for consult: Mental health evaluation Requesting physician: LUCY MACE - Chief Complaint Chief complaint: The patient, a 51 y/o White male, presents for a mental health evaluation after having a dispute with officers. He has a PMH of Schizophrenia, Bipolar disorder and PTSD. The patient takes Haldol 10MG oral tablets. He is a habitual offender of the law. He feels safe going home, wants to go home and continue his treatment in the outpatient. He takes Haldol at home. Patient describes a good and stable mood, denies being depressed or excessively nervous. Patient eats and sleeps well. Patient denies panic attacks, recurrent nightmares or flashbacks. Patient denies symptoms suggestive of OCD or PTSD. Patient denies hallucinations, paranoia, thought interference and no features suggestive of hypomania or arden. He completely denies suicidal or homicidal thoughts. Patient cleared for discharge. 1013 discontinued Mental Status Exam - Vital signs Last Vital Signs Temp 97.8 F 01/26/22 08:05 Pulse 120 H 01/26/22 08:05 Resp 18 01/26/22 08:05 BP 146/116 01/26/22 08:05 Pulse Ox 100 01/26/22 08:05
== END 2022-01-26 15:34 | disposition home or self-care (01) ==
LOC: ED 07:33
DX: R44.0 Auditory hallucinations (principal); R44.1 Visual hallucinations; Z20.822 Contact with and (suspected) exposure to COVID-19; I10 Essential (primary) hypertension; Z88.0 Allergy status to penicillin
CPT/HCPCS: 36415; 80048; 80307; 81001; 85025; 87086; 96372; 96374; 99285; J1200; J3486; U0003; 80320; G0480

== ENCOUNTER 2022-03-01 04:06 | Emergency (ER) | payer SELFPAY ==
[2022-03-01 06:07] VITALS: BP 156/107
--- NOTE | 2022-03-02 17:43 | Electrocardiograph Report ---
[facility] Test Date: 2022-03-01 Test Time: 06:12:39 Pat Name: ESTUARDO ROY Department: Room: Gender: M Dumper: JOURDAN : 1970 Requested By: ED DOC Order Number: [id number] Reading MD: Silvina Ernst Measurements Intervals [place] Rate: 78 P: 50 WA: 151 QRS: -29 QRSD: 88 T: 56 QT: 395 QTc: 448 Interpretive Statements Sinus rhythm Left axis deviation Nonspecific inferior lateral ST segment Compared to ECG 07/31/2021 21:57:20 No significant change Electronically Signed On 03-02-2022 17:43:04 EDT by Silvina Ernst
== END 2022-03-01 10:20 | disposition left against medical advice (07) ==
LOC: ED 04:06
DX: M79.602 Pain in left arm (principal); Z53.21 Procedure and treatment not carried out due to patient leaving prior to being seen by health care provider
CPT/HCPCS: 93005